=== PATIENT | female | born 1980 | race Caucasian/White ===

== ENCOUNTER 2018-07-19 13:40 | Day surgery (SDC) | payer OTHER ==
--- NOTE | 2018-07-19 14:19 | PCM.PREANE ---
Preanesthetic Assessment - Procedure Proposed Procedure: Laparscopic Appendectomy - Anesthesia/Transfusion/Family Hx Anesthesia History: Prior Anesthesia Without Reaction Family History of Anesthesia Reaction: No Transfusion History: Prior Transfusion Without Reaction Intubation History: Unknown - Review of Systems General: Chills Pulmonary: Cough, Sputum, Other (cold symptoms ) Cardiovascular: No Symptoms Gastrointestinal: No Symptoms Neurological: Numbness (right thigh numbness ) Other: Reports: None - Physical Assessment NPO Status Date: 07/18/18 NPO Status Time: 21:00 O2 Sat by Pulse Oximetry: 100 Respiratory Rate: 20 Vital Signs: Last Vital Signs Temp 37.1 C 07/19/18 13:57 Pulse 90 07/19/18 13:57 Resp 20 07/19/18 13:57 BP 137/91 H 07/19/18 13:57 Pulse Ox 100 07/19/18 13:57 Height: 1.78 m Weight: 79.379 kg ASA Class: 2E Mental Status: Alert & Oriented x3 Airway Class: Mallampati = 2 Dentition: Reports: Normal Dentition Thyro-Mental Finger Breadths: 3 Mouth Opening Finger Breadths: 5 ROM/Head Extension: Full Lungs: Clear to Auscultation, Normal Respiratory Effort Cardiovascular: Regular Rate, Regular Rhythm - Allergies Allergies/Adverse Reactions: Allergies Allergy/AdvReac Type Severity Reaction Status Date / Time erythromycin base Allergy Severe Other Verified 08/14/14 16:49 - Blood Blood Available: No - Anesthesia Plan Pre-Op Medication Ordered: None - Acknowledgements Anesthesia Type Planned: General Anesthesia Pt an Appropriate Candidate for the Planned Anesthesia: Yes Alternatives and Risks of Anesthesia Discussed w Pt/Guardian: Yes Pt/Guardian Understands and Agrees with Anesthesia Plan: Yes PreAnesthesia Questionnaire - HOME MEDS Home Medications: Home Meds . [No Known Home Meds] 07/19/18 [History]
[2018-07-19] MEDS ORDERED: Ketorolac 30 MG/ML SDV IVPUSH ONE (14:57)
[2018-07-19] MEDS ORDERED: Metoclopramide 10 MG/2 ML SDV IVPUSH ONE (15:27)
[2018-07-19] MEDS ORDERED: Lidocaine 1% 4 ML ONE (15:46)
[2018-07-19] MEDS ORDERED: Succinylcholine/Normal Saline 100 MG/5 ML Syringe ONE (15:46)
[2018-07-19] MEDS ORDERED: Lactated Ringers 1,000 ML ONE (15:46)
[2018-07-19] MEDS ORDERED: Dexamethasone 4 MG/ML SDV ONE (15:46)
[2018-07-19] MEDS ORDERED: Ondansetron 4 MG/2 ML SDV ONE (15:46)
[2018-07-19] MEDS ORDERED: Midazolam 1 MG/ML 2 ML SDV ONE (15:47)
[2018-07-19] MEDS ORDERED: Propofol 200 MG/20 ML SDV ONE (15:47)
[2018-07-19] MEDS ORDERED: fentaNYL 250 MCG/5 ML SDV ONE (15:47)
[2018-07-19] MEDS ORDERED: Ketorolac 30 MG/ML SDV ONE (15:51)
[2018-07-19] MEDS ORDERED: Rocuronium 50 MG/5 ML Vial ONE (15:51)
[2018-07-19] MEDS ORDERED: cefTRIAXone 1 GM in Sodium Chloride 0.9% 100 ML IV SCH (16:00)
--- NOTE | 2018-07-19 16:12 | PCM.HP ---
H&P History of Present Illness - General Date of Service: 07/19/18 Admit Problem/Dx: Admission Diagnosis/Problem Admission Diagnosis/Problem Appendicitis Source of Information: Patient, Provider - History of Present Illness Initial Comments - Free Text/Narative: Patient is a 38-year-old female presents with a one-day history of right lower quadrant abdominal pain. She also reports anorexia and nausea with vomiting. She denies any stool changes. She was feeling well one day ago. She presented to the walk-in clinic and was evaluated. She was found to have leukocytosis and CT scan of her abdomen and pelvis was performed. This indicated appendicitis with a dilated appendix and small fecaliths. Right Lower Abdomen Pain Score (Numeric/FACES): 8 - Related Data Allergies/Adverse Reactions: Allergies Allergy/AdvReac Type Severity Reaction Status Date / Time erythromycin base Allergy Severe Other Verified 08/14/14 16:49 Home Medications: Home Meds . [No Known Home Meds] 07/19/18 [History] Past Medical History - Past Surgical History Musculoskeletal Surgical History: Reports: Arthroscopic Knee (bilateral), Other (See Below) (hip surgery) Social & Family History - Family History HEENT: Reports: Macular Degeneration Cardiac: Reports: Hypertension Endocrine/Metabolic: Reports: Diabetes, type II H&P Review of Systems - Review of Systems: Review Of Systems: See Below HEENT: Reports: Sinus Congestion Pulmonary: Reports: No Symptoms Cardiovascular: Reports: No Symptoms Gastrointestinal: Reports: Abdominal Pain, Anorexia Genitourinary: Reports: No Symptoms Musculoskeletal: Reports: Leg Pain Skin: Reports: No Symptoms Psychiatric: Reports: No Symptoms Neurological: Reports: No Symptoms Hematologic/Lymphatic: Reports: No Symptoms Exam - Exam Exam: See Below - Vital Signs Vital Signs: Last Vital Signs Temp 37.1 C 07/19/18 13:57 Pulse 90 07/19/18 13:57 Resp 20 07/19/18 14:22 BP 137/91 H 07/19/18 13:57 Pulse Ox 100 07/19/18 14:22 Weight: 79.379 kg - Exam Quality Assessment: No: Supplemental Oxygen General: Alert, Oriented HEENT: Conjunctiva Clear, EOMI Neck: Supple Lungs: Normal Respiratory Effort Cardiovascular: Regular Rate GI/Abdominal Exam: Soft, Rebound (in RLQ), Tender (in RLQ ) Peripheral Pulses: 2+: Dorsalis Pedis (L), Dorsalis Pedis (R) Skin: Warm, Dry Neurological: Cranial Nerves Intact Neuro Extensive - Mental Status: Alert, Oriented x3, Normal Mood/Affect - Patient Data Lab Results Last 24 hrs: Laboratory Results - last 24 hr 07/19/18 Range/Units 15:30 Urine HCG, Qual Negative (NEGATIVE) *Q Meaningful Use (ADM) - VTE Risk Assess *Q Each Risk Factor Represents 1 Point: Minor Surgery Planned Total Score 1 Point Risk Factors: 1 - Problem List (1) Acute appendicitis SNOMED Code(s): 99759131 ICD Code: K35.80 - UNSPECIFIED ACUTE APPENDICITIS Status: Acute Current Visit: Yes Qualifiers: Acute appendicitis type: with localized peritonitis Appendicitis gangrene presence: unspecified whether gangrene present Appendicitis perforation presence: unspecified whether perforation present Appendicitis abscess presence: without abscess Qualified Code(s): K35.30 - Acute appendicitis with localized peritonitis, without perforation or gangrene Problem List Initiated/Reviewed/Updated: Yes Orders Last 24hrs: Active Orders 24 hr Category Date Time Status Patient Status [ADT] Routine ADT 07/19/18 15:14 Active cefTRIAXone [Rocephin] 1 gm Med 07/19/18 16:00 Active Sodium Chloride 0.9% [Normal Saline] 100 ml IV ONETIME metroNIDAZOLE/Normal Saline [Flagyl 500 MG in NS 100 ML Med 07/19/18 16:30 Active ] 500 mg Premix Bag 1 bag IV ONETIME Schedule Procedure [COMM] Stat Oth 07/19/18 15:14 Ordered Medication Orders Ceftriaxone Sodium 1 gm/ (Sodium Chloride) 100 mls @ 200 mls/hr IV ONETIME MARSHAL Metronidazole 500 mg/ Premix 100 mls @ 100 mls/hr IV ONETIME ONE Stop: 07/19/18 17:29 Assessment/Plan Comment:: 38-year-old female with acute appendicitis - Plan for laparoscopic appendectomy, possible open - Nothing by mouth with IV fluids - 1 G and Metronidazole 500 Mg IV - Will evaluate need for admission based on intraoperative findings Destiny Kelly MD General Surgery
[2018-07-19] MEDS ORDERED: metroNIDAZOLE/Normal Saline 500 MG in Premix Bag 1 BAG IV ONE (16:30)
[2018-07-19] MEDS: Lidocaine 1% with EPINEPHrine 1:100,000 20 ML MDV ONE ×2 (16:38→17:00)
[2018-07-19] MEDS: Bupivacaine 0.5%/EPINEPHrine 1:200,000 50 ML MDV ONE ×2 (16:38→17:00)
[2018-07-19] MEDS ORDERED: Meperidine 50 MG/ML Vial IVPUSH PRN (16:50)
[2018-07-19] MEDS ORDERED: Ondansetron 4 MG/2 ML SDV IVPUSH PRN (16:50)
[2018-07-19] MEDS ORDERED: diphenhydrAMINE 50 MG/ML SDV IVPUSH PRN (16:50)
[2018-07-19] MEDS ORDERED: HYDROmorphone 0.5 MG/0.5 ML Syringe IVPUSH PRN (16:50)
[2018-07-19] MEDS ORDERED: fentaNYL 100 MCG/2 ML SDV IVPUSH PRN (16:50)
[2018-07-19] MEDS ORDERED: Neostigmine Methylsulfate 1 MG/ML 5 ML Syringe ONE (17:07)
--- NOTE | 2018-07-19 17:21 | PCM.OPNOTE ---
- General Post-Op/Procedure Note Date of Surgery/Procedure: 07/19/18 Operative Procedure(s): Laparoscopic appendectomy Findings: Acute appendicitis, not ruptured Pre Op Diagnosis: Acute appendicitis Post-Op Diagnosis: Same Anesthesia Technique: General ET Tube Primary Surgeon: Destiny Kelly Anesthesia Provider: Rosa Isela Moran Pathology: appendix Fluid Replacement, Intraop: 1,000 Output, Urine Amount: 0 EBL in mLs: 15 Complications: none apparent Condition: Stable
--- NOTE | 2018-07-19 17:23 | PCM.PRNOTE ---
- Free Text/Narrative Note: Operative Report Date of surgery: July 19, 2018 Preoperative diagnosis: acute appendicitis. Postoperative diagnosis: same Procedure performed: laparoscopic appendectomy Surgeon: Dr. Destiny Kelly Anesthesia: General Entry Level Paralegal: Rosa Isela Moran CRNA Estimated blood loss 15 mL IV fluids: 1000 mL Urine output: 0 Drains and lines: None Findings: Acute appendicitis, not ruptured Pathology: Appendix Indications for procedure: The patient is a 38-year-old female who presented to the outpatient walk-in clinic complaining of one-day history of right lower quadrant pain. She underwent diagnostic evaluation was found to have acute appendicitis. She was brought to the hospital and evaluated by the surgical team. She was consented for laparoscopic appendectomy. Her written consent was obtained Description of procedure: The patient was taken back to the operating room and placed in supine position on the operating table. SCD boots were in place and functional prior to the start of the procedure. Preoperative antibiotics were administered. The patient had successful induction of general anesthesia and was intubated without difficulty. Pt was then prepped and draped in standard surgical fashion and a timeout was performed. We began by making a 15 mm incision in the infraumbilical skin and deepened down to level of the fascia which was then grasped and incised sharply. We entered the peritoneum and then placed stay sutures of 0 Vicryl on the fascial edges. A 12 mm Arreola port was then placed into the umbilicus and the balloon was inflated. The abdomen was insufflated to 15 mmHg a 5 mm camera was inserted. There was no evidence of any injury created from entry into the abdomen. A TAP block was performed using mixed 1% lidocaine with epinephrine and 0.5% bupivacaine with epinephrine . We then proceeded to place a 5 mm port under direct visualization in the suprapubic midline and an additional 5mm port in the left lower quadrant. The patient was then positioned in Trendelenburg with right side elevated and we proceeded to mobilize the appendix. The appendix appeared distended and inflamed. There was no significant fluid in the abdomen. The appendix was then grasped and with blunt dissection was brought into the surgical field. The mesoappendix dissected from the appendix. The appendix was then taken with a tissue staple load. The mesoappendix was then taken with a vascular staple load. The specimen was in place in the Endo Catch bag. We then inspected and suctioned up any blood in the area. There was no active bleeding at the end of this case. The abdomen was then desufflated and the umbilical fascia closed with 0 Vicryl sutures and the stay sutures were tied, effectively closing the umbilical port site. The skin was then reapproximated at all port sites using a 4-0 Monocryl subcutaneous stitch and covered with Dermabond surgical glue. The patient tolerated the procedure. She was extubated and transported to the PACU in stable condition. All sponge and needle counts were correct. Destiny Kelly MD General Surgery
[2018-07-19] MEDS ORDERED: Acetaminophen/HYDROcodone 325-5 MG Tab PO PRN (17:34)
--- NOTE | 2018-07-19 17:34 | PCM.POSTAN ---
POST ANESTHESIA ASSESSMENT - MENTAL STATUS Mental Status: Alert, Oriented - VITAL SIGNS Pulse Rate: 97 SaO2: 100 Resp Rate: 17 Blood Pressure: 135/72 Temperature: 36.7 C - RESPIRATORY Respiratory Status: Respiratory Rate WNL, Airway Patent, O2 Saturation Stable, Supplemental Oxygen - CARDIOVASCULAR CV Status: Pulse Rate WNL, Blood Pressure Stable - GASTROINTESTINAL GI Status: No Symptoms - PAIN Pain Score: 0 - POST OP HYDRATION Hydration Status: Adequate & Stable
[2018-07-19] MEDS ORDERED: Ibuprofen 600 MG Tab PO PRN (21:00)
--- NOTE | 2018-07-19 21:11 | PCM48HPAN ---
Post Anesthesia Note - EVALUATION WITHIN 48HRS OF ANESTHETIC Vital Signs in Normal Range: Yes Patient Participated in Evaluation: Yes Respiratory Function Stable: Yes Airway Patent: Yes Cardiovascular Function Stable: Yes Hydration Status Stable: Yes Pain Control Satisfactory: Yes Nausea and Vomiting Control Satisfactory: Yes Mental Status Recovered: Yes
[2018-07-19 21:54] VITALS: BP 130/77
== END 2018-07-19 21:15 | disposition home or self-care (01) ==
LOC: JD.ED 13:40 → JD.SDS 13:40
PROVIDERS: ATTEND Surgery
DX: K35.30 Acute appendicitis with localized peritonitis, without perforation or gangrene (principal); Z88.1 Allergy status to other antibiotic agents
CPT/HCPCS: 44970; 81025; 96374; 96375; 99284; A9270; J0696; J1100; J1885; J2250; J2405; J2704; J2710; J2765; J3010; J3490; J7030; J7120; 00840; J0330; J2001

== ENCOUNTER 2019-07-01 06:31 | Inpatient (IN) | payer OTHER ==
[2019-07-01] MEDS ORDERED: Acetaminophen 325 MG Tab PO PRN (11:46)
[2019-07-01] MEDS ORDERED: Nalbuphine 10 MG/1 ML Vial IVPUSH PRN (12:11)
[2019-07-01] MEDS ORDERED: Sodium Chloride 0.9% 10 ML Syringe FLUSH PRN (12:11)
[2019-07-01] MEDS ORDERED: Oxytocin/Lactated Ringers 10 UNIT/1,000 ML BAG IV SCH ×4 (12:15→21:00)
[2019-07-01] MEDS ORDERED: Misoprostol 200 MCG Tab RECTAL ONE (12:15)
--- NOTE | 2019-07-01 12:27 | PCM.LDHP ---
L&D History of Present Illness - General Date of Service: 07/01/19 Admit Problem/Dx: Patient Status Order with Admit Dx/Problem 07/01/19 12:14 Patient Status [ADT] Routine Admission Diagnosis/Problem Admission Diagnosis/Problem Gestational hypertension Source of Information: Patient History Limitations: Reports: No Limitations - History of Present Illness Introduction:: Yaneli Bazan is a 39-year-old -0-0-2 at 38 weeks 0 days ([facility] 07/15/2019 ) by LMP consistent with 8-week ultrasound. She presented this morning for evaluation of not feeling well for the last several days and had gotten worse overnight. She reports that she had not been feeling her normal self over the last 2 to 3 days with right shoulder pain and an uneasiness in her stomach. She reports that overnight this became worse and she had difficulty sleeping. She reports that she has had some blurriness in her vision during this time and did have some episodes with flashes of light but it always occurred with sudden change in position and never persisted. She denies any headache or epigastric pain. She denies any persistent scotomata. She reports that she does have irregular contractions that have been persistent throughout the last few weeks that have been unchanged. She denies any leaking of fluid or vaginal bleeding. Timing/Duration: Reports: gradual onset, getting worse Severity: Moderate Pain Score: 4 Improves with: Reports: None Worsens with: Reports: None Associated Symptoms: Denies: vaginal bleeding, vaginal discharge, vaginal fluid Present Illness Comments:: Yaneli Bazan is a 39-year-old -0-0-2 female at 38 weeks 0 days ([facility] 07/15/2019) by LMP consistent with 8-week ultrasound. She has had routine care with Dr. Caldwell starting at 8 weeks gestational age. This has been overall uncomplicated. Her has been complicated by: * History of preeclampsia in her last * History of hemorrhage with 2 unit blood transfusion after delivery of her last child in 2014 * Complications with right hip after last delivery with necessity of right hip arthroscopy and hip surgery with labrum repair * Advanced maternal age * History of genital herpes without any prodromal symptoms at this time * History of abnormal Pap smear labs Blood type: O+ Antibody screen: Negative First trimester hematocrit/hemoglobin: 36.8%/12.3 on 01/06/2019 Platelets: 237 on 01/06/2019 Rubella status: Immune Hepatitis B surface antigen: Negative RPR: Negative HIV: Negative One hour glucose tolerance test: 100 Second trimester hemoglobin: 11.2 on 03/31/2019 Platelets: 213 on 03/31/2019 GBS status: Negative - Related Data Allergies/Adverse Reactions: Allergies Allergy/AdvReac Type Severity Reaction Status Date / Time erythromycin base AdvReac Intermediate Change Verified 07/20/18 07:11 Mental Status Home Medications: Home Meds No122/Iron/Folic Acid [ Multi Tablet] 1 each PO DAILY 07/01/19 [History] Past Medical History HEENT History: Reports: Other (See Below) Other HEENT History: contacts [employer] RN History: Reports: , Other (See Below) : 3 Para: 2 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: hemorrhage with vaginal delivery of 2nd , preeclampsia with 2nd Musculoskeletal History: Reports: Other (See Below) Other Musculoskeletal History: right hip arthroplasty after last delivery for labrum tear - Past Surgical History HEENT Surgical History: Reports: Tonsillectomy, Other (See Below) ([place] teeth extraction) GI Surgical History: Reports: Appendectomy Musculoskeletal Surgical History: Reports: Arthroscopic Knee (Bilateral), Other (See Below) (Right hip arthroscopy, acetabular and femoral osteoplasty and labral repair) Social & Family History - Family History Family Medical History: Noncontributory HEENT: Reports: Macular Degeneration Cardiac: Reports: Hypertension Endocrine/Metabolic: Reports: Diabetes, type II - Tobacco Use Smoking Status *Q: Former Smoker Tobacco Use Within Last Twelve Months: No - Tobacco Core Measures Tobacco Use/Smoking Within Last 30 Days: No Smokeless Tobacco Use in Last 30 Days: No - Caffeine Use Caffeine Use: Reports: Coffee - Alcohol Use Alcohol Use History: No - Recreational Drug Use Recreational Drug Use: No Drug Use in Last 12 Months: No - Living Situation & Occupation Living situation: Reports: , with Significant Other, with Family H&P Review of Systems - Review of Systems: Review Of Systems: See Below General: Denies: Fever, Chills, Malaise, Weakness, Fatigue HEENT: Reports: Contact Lenses, Sinus Congestion, Visual Changes (blurry vision over last several days). Denies: Headaches, Rhinitis, Post Nasal Drip, Sore Throat Pulmonary: Denies: Shortness of Breath, Wheezing, Pleuritic Chest Pain, Cough Cardiovascular: Denies: Chest Pain, Palpitations, Dyspnea on Exertion, Orthopnea Gastrointestinal: Denies: Abdominal Pain, Constipation, Diarrhea, Nausea, Vomiting Genitourinary: Denies: Dysuria, Frequency, Burning, Pain, Urgency Musculoskeletal: Reports: Neck Pain, Shoulder Pain (right) Skin: Denies: Rash, Lesions Psychiatric: Denies: Depression, Anxiety Neurological: Denies: Headache Hematologic/Lymphatic: Denies: Anemia L&D Exam - Exam Exam: See Below - Vital Signs Vital Signs: Last Vital Signs Temp 36.9 C 07/01/19 06:35 Pulse 72 07/01/19 07:31 Resp 16 07/01/19 06:35 BP 152/88 H 07/01/19 07:31 Pulse Ox 100 07/01/19 06:35 - OB Specific Contraction Duration (sec): 45-60 Contraction Frequency (min): 7-15 Contraction Intensity: Mild to Moderate Movement: Active Heart Tones: Present Heart Tones per Min: 130 (+15 x 15 accelerations, no decelerations) Heart Rate (FHR) Variability: Moderate (6-25 bmp) Presentation: Vertex Estimated Weight: 7 to 7.5 pounds by Eh's - Estrada Score Estrada Score Cervix Position: Anterior Estrada Score Consistency: Soft Estrada Score Effacement: >80% (80%) Estrada Score Dilation: 3-4 cm (3 cm) Estrada Score Infant's Station: -3 (-4) Estrada Score Total: 9 - Exam General: Alert, Oriented HEENT: Conjunctiva Clear, EOMI Neck: Supple, Trachea Midline Lungs: Clear to Auscultation, Normal Respiratory Effort Cardiovascular: Regular Rate, Regular Rhythm GI/Abdominal Exam: Soft, Non-Tender, No Distention, Other (Gravid). No: Guarding, Rigid, Rebound Genitourinary: Normal external exam Extremities: Normal Inspection, Non-Tender, Pedal Edema (Trace in bilateral lower extremities to mid shins) Skin: Warm, Dry, Intact Psychiatric: Alert, Normal Affect, Normal Mood - Patient Data Lab Results Last 24 hrs: Laboratory Results - last 24 hr 07/01/19 07/01/19 07/01/19 Range/Units 06:50 07:18 07:25 WBC 9.69 (3.98-10.04) K/mm3 RBC 4.12 (3.98-5.22) M/mm3 Hgb 12.3 D (11.2-15.7) gm/dl Hct 36.1 (34.1-44.9) % MCV 87.6 D (79.4-94.8) fl MCH 29.9 (25.6-32.2) pg MCHC 34.1 (32.2-35.5) g/dl RDW Std Deviation 40.6 (36.4-46.3) fL Plt Count 177 L (182-369) K/mm3 MPV 12.0 (9.4-12.3) fl Neut % (Auto) 76.2 H (34.0-71.1) % Lymph % (Auto) 18.3 L (19.3-51.7) % [place] % (Auto) 4.5 L (4.7-12.5) % Eos % (Auto) 0.7 (0.7-5.8) Baso % (Auto) 0.3 (0.1-1.2) % Neut # (Auto) 7.38 H (1.56-6.13) K/mm3 Lymph # (Auto) 1.77 (1.18-3.74) K/mm3 [place] # (Auto) 0.44 H (0.24-0.36) K/mm3 Eos # (Auto) 0.07 (0.04-0.36) K/mm3 Baso # (Auto) 0.03 (0.01-0.08) K/mm3 Manual Slide Review Normal smear Sodium (136-145) mEq/L Potassium (3.5-5.1) mEq/L Chloride (98-107) mEq/L Carbon Dioxide (21-32) mEq/L Anion Gap (5-15) BUN (7-18) mg/dL Creatinine (0.55-1.02) mg/dL Est Cr Clr Drug Dosing Estimated GFR (MDRD) (>60) mL/min BUN/Creatinine Ratio (14-18) Glucose (74-106) mg/dL Calcium (8.5-10.1) mg/dL Total Bilirubin (0.2-1.0) mg/dL AST (15-37) U/L ALT (14-59) U/L Alkaline Phosphatase (46-116) U/L Total Protein (6.4-8.2) g/dl Albumin (3.4-5.0) g/dl Globulin gm/dL Albumin/Globulin Ratio (1-2) Urine Color Yellow (Yellow) Urine Appearance Slt cloudy H (Clear) Urine pH 7.0 (5.0-8.0) Ur Specific [place] 1.025 (1.005-1.030) Urine Protein Trace H (Negative) Urine Glucose (UA) Negative (Negative) Urine Ketones Negative (Negative) Urine Occult Blood Negative (Negative) Urine Nitrite Negative (Negative) Urine Bilirubin Negative (Negative) Urine Urobilinogen 0.2 (0.2-1.0) Ur Leukocyte Esterase Trace H (Negative) Urine RBC Not seen (0-5) /hpf Urine WBC 0-5 (0-5) /hpf Ur Squamous Epith Cells 0-5 (0-5) /hpf Urine Bacteria Few (FEW) /hpf Urine Mucus Few (FEW) /hpf Ur Random Creatinine 176.9 H (30.0-125.0) mg/dL U Random Total Protein 34.7 H (0.0-11.8) mg/dL Protein/Creatinin Ratio 196.2 H (0-149) mg/g 07/01/19 Range/Units 07:25 WBC (3.98-10.04) K/mm3 RBC (3.98-5.22) M/mm3 Hgb (11.2-15.7) gm/dl Hct (34.1-44.9) % MCV (79.4-94.8) fl MCH (25.6-32.2) pg MCHC (32.2-35.5) g/dl RDW Std Deviation (36.4-46.3) fL Plt Count (182-369) K/mm3 MPV (9.4-12.3) fl Neut % (Auto) (34.0-71.1) % Lymph % (Auto) (19.3-51.7) % [place] % (Auto) (4.7-12.5) % Eos % (Auto) (0.7-5.8) Baso % (Auto) (0.1-1.2) % Neut # (Auto) (1.56-6.13) K/mm3 Lymph # (Auto) (1.18-3.74) K/mm3 [place] # (Auto) (0.24-0.36) K/mm3 Eos # (Auto) (0.04-0.36) K/mm3 Baso # (Auto) (0.01-0.08) K/mm3 Manual Slide Review Sodium 132 L (136-145) mEq/L Potassium 3.4 L (3.5-5.1) mEq/L Chloride 99 (98-107) mEq/L Carbon Dioxide 22 (21-32) mEq/L Anion Gap 14.4 (5-15) BUN 11 (7-18) mg/dL Creatinine 0.8 (0.55-1.02) mg/dL Est Cr Clr Drug Dosing TNP Estimated GFR (MDRD) > 60 (>60) mL/min BUN/Creatinine Ratio 13.8 L (14-18) Glucose 79 (74-106) mg/dL Calcium 8.7 (8.5-10.1) mg/dL Total Bilirubin 0.5 (0.2-1.0) mg/dL AST 69 H (15-37) U/L ALT 99 H (14-59) U/L Alkaline Phosphatase 206 H (46-116) U/L Total Protein 6.4 (6.4-8.2) g/dl Albumin 2.6 L (3.4-5.0) g/dl Globulin 3.8 gm/dL Albumin/Globulin Ratio 0.7 L (1-2) Urine Color (Yellow) Urine Appearance (Clear) Urine pH (5.0-8.0) Ur Specific [place] (1.005-1.030) Urine Protein (Negative) Urine Glucose (UA) (Negative) Urine Ketones (Negative) Urine Occult Blood (Negative) Urine Nitrite (Negative) Urine Bilirubin (Negative) Urine Urobilinogen (0.2-1.0) Ur Leukocyte Esterase (Negative) Urine RBC (0-5) /hpf Urine WBC (0-5) /hpf Ur Squamous Epith Cells (0-5) /hpf Urine Bacteria (FEW) /hpf Urine Mucus (FEW) /hpf Ur Random Creatinine (30.0-125.0) mg/dL U Random Total Protein (0.0-11.8) mg/dL Protein/Creatinin Ratio (0-149) mg/g Result Diagrams: 07/01/19 07:25 07/01/19 07:25 - Problem List (1) 38 weeks gestation of SNOMED Code(s): 42548344 ICD Code: Z3A.38 - 38 WEEKS GESTATION OF Status: Acute Current Visit: Yes (2) Gestational hypertension SNOMED Code(s): 847044250 ICD Code: O13.9 - GESTATIONAL HTN W/O SIGNIFICANT PROTEINURIA, UNSP TRIMESTER Status: Acute Current Visit: Yes (3) History of pre-eclampsia in prior , currently SNOMED Code(s): 562350181334282, 679771678986712 ICD Code: O09.299 - SUPRVSN OF PREG W POOR REPRODCTV OR OBSTET HISTORY, UNSP TRI Status: Acute Current Visit: Yes (4) History of hemorrhage, currently SNOMED Code(s): 70161975 ICD Code: O09.299 - SUPRVSN OF PREG W POOR REPRODCTV OR OBSTET HISTORY, UNSP TRI Status: Acute Current Visit: Yes (5) Advanced maternal age in multigravida SNOMED Code(s): 743150955 ICD Code: O09.529 - SUPERVISION OF ELDERLY MULTIGRAVIDA, UNSPECIFIED TRIMESTER Status: Acute Current Visit: Yes Problem List Initiated/Reviewed/Updated: Yes Orders Last 24hrs: Active Orders 24 hr Category Date Time Status Patient Status [ADT] Routine ADT 07/01/19 12:14 Active Activity as Tolerated [RC] PFP Care 07/01/19 12:13 Ordered Communication Order [RC] ASDIRECTED Care 07/01/19 12:13 Ordered Heart Tones [RC] ASDIRECTED Care 07/01/19 12:13 Ordered Notify Provider Vital Signs [RC] PRN Care 07/01/19 12:14 Ordered Notify Provider [RC] PFP Care 07/01/19 12:13 Ordered Notify Provider [RC] PRN Care 07/01/19 12:13 Ordered Peripheral IV Care [RC] . DIRECTED Care 07/01/19 12:13 Ordered Pump Management, Intrathecal [RC] ASDIRECTED Care 07/01/19 12:14 Ordered Urinary Catheter Assessment [RC] ASDIRECTED Care 07/01/19 12:11 Ordered Vaginal Exam [RC] PRN Care 07/01/19 06:36 Active Vital Signs [RC] PER UNIT ROUTINE Care 07/01/19 06:35 Active Vital Signs [RC] PER UNIT ROUTINE Care 07/01/19 12:13 Ordered Regular Diet [DIET] Diet 07/01/19 Breakfast Active RAPID PLASMA REAGIN,RPR [CHEM] Routine Lab 07/01/19 12:13 Ordered TYPE AND SCREEN [BBK] Routine Lab 07/01/19 12:11 Ordered Acetaminophen [Tylenol] Med 07/01/19 11:46 Active 650 mg PO Q4H PRN Lactated Ringers [Ringers, Lactated] 1,000 ml Med 07/01/19 12:15 Ordered IV ASDIRECTED Nalbuphine [Nubain] Med 07/01/19 12:11 Ordered 10 mg IVPUSH Q2H PRN Oxytocin/Lactated Ringers [Pitocin in LR 10 Units/1,000 Med 07/01/19 12:15 Ordered ML] 10 unit in 1,000 ml IV .CONTINUOUS Oxytocin/Lactated Ringers [Pitocin in LR 10 Units/1,000 Med 07/01/19 12:15 Ordered ML] 10 unit in 1,000 ml IV TITRATE Sodium Chloride 0.9% [Saline Flush] Med 07/01/19 12:11 Ordered 10 ml FLUSH ASDIRECTED PRN miSOPROStoL [Cytotec] Med 07/01/19 12:15 Once 1,000 mcg RECTAL ONETIME ONE Electronic Heart Tones Ext w TOCO [WOMSER] Oth 07/01/19 12:13 Ordered Routine Electronic Heart Tones Internal [WOMSER] Per Unit Oth 07/01/19 12:13 Ordered Routine Peripheral IV Insertion Adult [OM.PC] Routine Oth 07/01/19 12:13 Ordered Resuscitation Status Routine Resus Stat 07/01/19 06:35 Ordered Medication Orders Acetaminophen (Tylenol) 650 mg PO Q4H PRN PRN Reason: neck pain Last Admin: 07/01/19 12:02 Dose: 650 mg Assessment/Plan Comment:: Yaneli Bazan is a 39-year-old -0-0-2 at 38 weeks 0 days by LMP consistent with 8-week ultrasound who presents with gestational hypertension. Patient has had multiple and persistent mild range blood pressures with mildly elevated liver enzymes and no evidence of proteinuria. Patient likely has gestational hypertension and recommend for induction of labor at this time. Recommendations were discussed with patient and she desires to proceed with induction of labor. During pelvic exam the cervix was noted to be dilated to 3/80/-4/soft/anterior. Was felt that a Garcia bulb would help with initiating the induction process and a 16 [place] Garcia bulb was introduced manually through the cervix and filled with 50 mL of sterile saline. Mother and infant tolerated procedure without difficulty. Refer to observation for medically indicated induction of labor with gestational hypertension Start Pitocin for induction of labor Continuous monitoring Place IV and have Lactated Ringer's at 125 ml/hr May have small amounts of regular diet Activity as tolerated May have epidural as desired Plans to breast-feed after delivery We will plan for artificial rupture of membranes once patient has had cervical dilation. Anticipate vaginal delivery unless otherwise indicated Niall Pendleton MD 12:38 PM 07/01/2019
[2019-07-01] MEDS: Lactated Ringers 1,000 ML IV SCH ×2 (12:44→17:41)
[2019-07-01] MEDS ORDERED: Bupivacaine 0.25% 10 ML SDV ONE (14:00)
[2019-07-01] MEDS ORDERED: diphenhydrAMINE 50 MG/ML SDV IVPUSH PRN (14:54)
[2019-07-01] MEDS ORDERED: fentaNYL/Bupivacaine/NS 2 MCG-0.125% 250 ML EPIDUR PRN (14:54)
[2019-07-01] MEDS ORDERED: ePHEDrine 50 MG/ML SDV IVPUSH PRN (14:54)
[2019-07-01] MEDS ORDERED: fentaNYL 100 MCG/2 ML SDV EPIDUR PRN (14:54)
--- NOTE | 2019-07-01 15:35 | PCM.PREANE ---
Preanesthetic Assessment - Anesthesia/Transfusion/Family Hx Anesthesia History: Prior Anesthesia Without Reaction Family History of Anesthesia Reaction: No Transfusion History: Prior Transfusion Without Reaction Intubation History: Unknown - Review of Systems General: No Symptoms Pulmonary: No Symptoms Cardiovascular: Other (Hypertension) Gastrointestinal: Other (GERD) Neurological: Pre-Existing Deficit (headache with neck pain mostly right side of her neck) Other: Reports: Neck Pain - Physical Assessment Vital Signs: Last Vital Signs Temp 36.9 C 07/01/19 06:35 Pulse 72 07/01/19 07:31 Resp 16 07/01/19 06:35 BP 152/88 H 07/01/19 07:31 Pulse Ox 100 07/01/19 06:35 Height: 1.78 m Weight: 85.729 kg ASA Class: 2 Mental Status: Alert & Oriented x3 Airway Class: Mallampati = 2 Dentition: Reports: Normal Dentition Thyro-Mental Finger Breadths: 3 Mouth Opening Finger Breadths: 3 ROM/Head Extension: Full Lungs: Clear to Auscultation, Normal Respiratory Effort Cardiovascular: Regular Rate, Regular Rhythm - Lab Values: Laboratory Last Values WBC 9.69 K/mm3 (3.98-10.04) 07/01/19 07:25 RBC 4.12 M/mm3 (3.98-5.22) 07/01/19 07:25 Hgb 12.3 gm/dl (11.2-15.7) D 07/01/19 07:25 Hct 36.1 % (34.1-44.9) 07/01/19 07:25 MCV 87.6 fl (79.4-94.8) D 07/01/19 07:25 MCH 29.9 pg (25.6-32.2) 07/01/19 07:25 MCHC 34.1 g/dl (32.2-35.5) 07/01/19 07:25 RDW Std Deviation 40.6 fL (36.4-46.3) 07/01/19 07:25 Plt Count 177 K/mm3 (182-369) L 07/01/19 07:25 MPV 12.0 fl (9.4-12.3) 07/01/19 07:25 Neut % (Auto) 76.2 % (34.0-71.1) H 07/01/19 07:25 Lymph % (Auto) 18.3 % (19.3-51.7) L 07/01/19 07:25 [place] % (Auto) 4.5 % (4.7-12.5) L 07/01/19 07:25 Eos % (Auto) 0.7 (0.7-5.8) 07/01/19 07:25 Baso % (Auto) 0.3 % (0.1-1.2) 07/01/19 07:25 Neut # (Auto) 7.38 K/mm3 (1.56-6.13) H 07/01/19 07:25 Lymph # (Auto) 1.77 K/mm3 (1.18-3.74) 07/01/19 07:25 [place] # (Auto) 0.44 K/mm3 (0.24-0.36) H 07/01/19 07:25 Eos # (Auto) 0.07 K/mm3 (0.04-0.36) 07/01/19 07:25 Baso # (Auto) 0.03 K/mm3 (0.01-0.08) 07/01/19 07:25 Manual Slide Review Normal smear 07/01/19 07:25 Sodium 132 mEq/L (136-145) L 07/01/19 07:25 Potassium 3.4 mEq/L (3.5-5.1) L 07/01/19 07:25 Chloride 99 mEq/L (98-107) 07/01/19 07:25 Carbon Dioxide 22 mEq/L (21-32) 07/01/19 07:25 Anion Gap 14.4 (5-15) 07/01/19 07:25 BUN 11 mg/dL (7-18) 07/01/19 07:25 Creatinine 0.8 mg/dL (0.55-1.02) 07/01/19 07:25 Est Cr Clr Drug Dosing TNP 07/01/19 07:25 Estimated GFR (MDRD) > 60 mL/min (>60) 07/01/19 07:25 BUN/Creatinine Ratio 13.8 (14-18) L 07/01/19 07:25 Glucose 79 mg/dL (74-106) 07/01/19 07:25 Calcium 8.7 mg/dL (8.5-10.1) 07/01/19 07:25 Total Bilirubin 0.5 mg/dL (0.2-1.0) 07/01/19 07:25 AST 69 U/L (15-37) H 07/01/19 07:25 ALT 99 U/L (14-59) H 07/01/19 07:25 Alkaline Phosphatase 206 U/L (46-116) H 07/01/19 07:25 Total Protein 6.4 g/dl (6.4-8.2) 07/01/19 07:25 Albumin 2.6 g/dl (3.4-5.0) L 07/01/19 07:25 Globulin 3.8 gm/dL 07/01/19 07:25 Albumin/Globulin Ratio 0.7 (1-2) L 07/01/19 07:25 Urine Color Yellow (Yellow) 07/01/19 06:50 Urine Appearance Slt cloudy (Clear) H 07/01/19 06:50 Urine pH 7.0 (5.0-8.0) 07/01/19 06:50 Ur Specific [place] 1.025 (1.005-1.030) 07/01/19 06:50 Urine Protein Trace (Negative) H 07/01/19 06:50 Urine Glucose (UA) Negative (Negative) 07/01/19 06:50 Urine Ketones Negative (Negative) 07/01/19 06:50 Urine Occult Blood Negative (Negative) 07/01/19 06:50 Urine Nitrite Negative (Negative) 07/01/19 06:50 Urine Bilirubin Negative (Negative) 07/01/19 06:50 Urine Urobilinogen 0.2 (0.2-1.0) 07/01/19 06:50 Ur Leukocyte Esterase Trace (Negative) H 07/01/19 06:50 Urine RBC Not seen /hpf (0-5) 07/01/19 06:50 Urine WBC 0-5 /hpf (0-5) 07/01/19 06:50 Ur Squamous Epith Cells 0-5 /hpf (0-5) 07/01/19 06:50 Urine Bacteria Few /hpf (FEW) 07/01/19 06:50 Urine Mucus Few /hpf (FEW) 07/01/19 06:50 Ur Random Creatinine 176.9 mg/dL (30.0-125.0) H 07/01/19 07:18 U Random Total Protein 34.7 mg/dL (0.0-11.8) H 07/01/19 07:18 Protein/Creatinin Ratio 196.2 mg/g (0-149) H 07/01/19 07:18 Blood Type O POSITIVE 07/01/19 07:25 Gel Antibody Screen Negative 07/01/19 07:25 - Allergies Allergies/Adverse Reactions: Allergies Allergy/AdvReac Type Severity Reaction Status Date / Time erythromycin base AdvReac Intermediate Change Verified 07/20/18 07:11 Mental Status - Acknowledgements Anesthesia Type Planned: Epidural Pt an Appropriate Candidate for the Planned Anesthesia: Yes Alternatives and Risks of Anesthesia Discussed w Pt/Guardian: Yes Pt/Guardian Understands and Agrees with Anesthesia Plan: Yes PreAnesthesia Questionnaire HEENT History: Reports: Other (See Below) Other HEENT History: contacts 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: , Other (See Below) 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: hemorrhage with vaginal delivery of 2nd , preeclampsia with 2nd Musculoskeletal History: Reports: Other (See Below) Other Musculoskeletal History: right hip arthroplasty after last delivery for labrum tear - Past Surgical History HEENT Surgical History: Reports: Tonsillectomy, Other (See Below) ([place] teeth extraction) GI Surgical History: Reports: Appendectomy Musculoskeletal Surgical History: Reports: Arthroscopic Knee (Bilateral), Other (See Below) (Right hip arthroscopy, acetabular and femoral osteoplasty and labral repair) - SUBSTANCE USE Smoking Status *Q: Former Smoker Tobacco Use Within Last Twelve Months: No Recreational Drug Use History: No - HOME MEDS Home Medications: Home Meds No122/Iron/Folic Acid [ Multi Tablet] 1 each PO DAILY 07/01/19 [History] - CURRENT (IN HOUSE) MEDS Current Meds: Current Medications Acetaminophen (Tylenol) 650 mg PO Q4H PRN PRN Reason: neck pain Last Admin: 07/01/19 12:02 Dose: 650 mg Diphenhydramine HCl (Benadryl) 25 mg IVPUSH Q6H PRN PRN Reason: pruritis Ephedrine Sulfate (Ephedrine Sulfate) 5 mg IVPUSH ASDIRECTED PRN PRN Reason: Hypotension Fentanyl (Sublimaze) 100 mcg EPIDUR Q3H PRN PRN Reason: Pain Fentanyl/Bupivacaine HCl (Fentanyl/Bupivacaine/Ns 2 Mcg-0.125% 250 Ml) 250 ml EPIDUR CONTINUOUS PRN PRN Reason: Pain Last Admin: 07/01/19 15:33 Dose: 250 ml Lactated Ringer's (Ringers, Lactated) 1,000 mls @ 100 mls/hr IV ASDIRECTED MARSHAL Last Admin: 07/01/19 12:44 Dose: 100 mls/hr Oxytocin/Lactated Ringer's (Pitocin In Lr 10 Units/1,000 Ml) 10 unit in 1,000 mls @ 12 mls/hr IV TITRATE MARSHAL; Protocol Last Titration: 07/01/19 14:30 Dose: 8 munits/min, 48 mls/hr Oxytocin/Lactated Ringer's (Pitocin In Lr 10 Units/1,000 Ml) 10 unit in 1,000 mls @ 100 mls/hr IV .CONTINUOUS MARSHAL Oxytocin/Lactated Ringer's (Pitocin In Lr 10 Units/1,000 Ml) 10 unit in 1,000 mls @ 12 mls/hr IV TITRATE MARSHAL; Protocol Nalbuphine HCl (Nubain) 10 mg IVPUSH Q2H PRN PRN Reason: Pain Sodium Chloride (Saline Flush) 10 ml FLUSH ASDIRECTED PRN PRN Reason: Keep Vein Open Discontinued Medications Misoprostol (Cytotec) 1,000 mcg RECTAL ONETIME ONE Stop: 07/01/19 12:16
--- NOTE | 2019-07-01 17:05 | PCM.PNLD ---
Labor Progress Note - VS & Meds Vital Signs: Last Vital Signs Temp 36.9 C 07/01/19 06:35 Pulse 72 07/01/19 07:31 Resp 16 07/01/19 06:35 BP 152/88 H 07/01/19 07:31 Pulse Ox 100 07/01/19 06:35 Active Medications: Current Medications Acetaminophen (Tylenol) 650 mg PO Q4H PRN PRN Reason: neck pain Last Admin: 07/01/19 12:02 Dose: 650 mg Diphenhydramine HCl (Benadryl) 25 mg IVPUSH Q6H PRN PRN Reason: pruritis Ephedrine Sulfate (Ephedrine Sulfate) 5 mg IVPUSH ASDIRECTED PRN PRN Reason: Hypotension Fentanyl (Sublimaze) 100 mcg EPIDUR Q3H PRN PRN Reason: Pain Fentanyl/Bupivacaine HCl (Fentanyl/Bupivacaine/Ns 2 Mcg-0.125% 250 Ml) 250 ml EPIDUR CONTINUOUS PRN PRN Reason: Pain Last Admin: 07/01/19 15:33 Dose: 250 ml Lactated Ringer's (Ringers, Lactated) 1,000 mls @ 100 mls/hr IV ASDIRECTED MARSHAL Last Admin: 07/01/19 12:44 Dose: 100 mls/hr Oxytocin/Lactated Ringer's (Pitocin In Lr 10 Units/1,000 Ml) 10 unit in 1,000 mls @ 12 mls/hr IV TITRATE MARSHAL; Protocol Last Titration: 07/01/19 16:31 Dose: 12 munits/min, 72 mls/hr Oxytocin/Lactated Ringer's (Pitocin In Lr 10 Units/1,000 Ml) 10 unit in 1,000 mls @ 100 mls/hr IV .CONTINUOUS MARSHAL Oxytocin/Lactated Ringer's (Pitocin In Lr 10 Units/1,000 Ml) 10 unit in 1,000 mls @ 12 mls/hr IV TITRATE MARSHAL; Protocol Nalbuphine HCl (Nubain) 10 mg IVPUSH Q2H PRN PRN Reason: Pain Sodium Chloride (Saline Flush) 10 ml FLUSH ASDIRECTED PRN PRN Reason: Keep Vein Open Discontinued Medications Misoprostol (Cytotec) 1,000 mcg RECTAL ONETIME ONE Stop: 07/01/19 12:16 - Uterine Contractions Contraction Frequency (min): 2-4 Contraction Duration (sec): 60-75 Contraction Intensity: Moderate to Strong Uterine Resting Tone: Soft - Monitoring Monitor Mode: Doppler/Auscultation Heart Rate (FHR) Baseline: 125 Heart Rate (FHR) Per Doppler: 125 Heart Rate (FHR) Variability: Moderate (6-25 bmp) Accelerations: Present, 15x15 Decelerations: None Strip Review: Category I - Vaginal Exam Dilation (cm): 6 Effacement (Percent): 80 Station: -3 Cervical Position: Anterior Sterile Vaginal Exam Performed By: Niall Pendleton Vaginal Exam Comment: Artificial rupture membranes performed with [place]. Large amount of clear fluid returned. Mother and infant tolerated without difficulty. - Labor Progress (Free Text) Labor Progress: Continuous monitoring of infant Continue Pitocin for induction of labor Routine vitals Monitor for any signs or symptoms of severe features of preeclampsia Anticipate vaginal delivery unless otherwise indicated Niall Pendleton MD 5:05 PM 07/01/2019
[2019-07-01] MEDS ORDERED: Misoprostol 200 MCG Tab ONE (19:51)
[2019-07-01] MEDS ORDERED: Carboprost Tromethamine 250 MCG/1 ML Amp ONE (20:31)
[2019-07-01] MEDS ORDERED: Atropine/Diphenoxylate 0.025-2.5 MG Tab PO ONE (20:34)
[2019-07-01] MEDS ORDERED: Carboprost Tromethamine 250 MCG/1 ML Amp IM ONE (20:37)
[2019-07-01] MEDS ORDERED: Benzocaine/Menthol 20%-0.5% Spray 56 GM Canister TOP PRN (20:58)
[2019-07-01] MEDS ORDERED: Hydrocortisone Acetate 25 MG Supp RECTAL PRN (20:58)
[2019-07-01] MEDS ORDERED: Docusate Sodium 100 MG Cap PO PRN (20:58)
--- NOTE | 2019-07-01 21:14 | PCM.DEL ---
L & D Note - General Info Date of Service: 07/01/19 Mother's Due Date: 07/15/19 - Delivery Note Labor: Augmented by ARM, Induced by Oxytocin Delivery Outcome: Livebirth Delivery Method: Spontaneous Vaginal Delivery-Single Presentation: Left Occiput Anterior (ALEKSANDAR) Nuchal Cord: Present (x1), Reduced Prep: Povidone-Iodine (Betadine Anesthesia Type: Epidural Amniotic Fluid Description: Clear Episiotomy Type: None Laceration: None Placenta: Intact, Spontaneous Cord: 3 Vessels Estimated Blood Loss: 500 Resuscitation Needed: Yes [place]: Bulb Syringe, Stimulated, Warmed, [place] Used Provider: Niall Pendleton Score 1 min: 8 Score 5 min: 9 Second Stage Interventions: Reports: Pushing Effectively, Pushing, Stirrups/Leg Supports Delivery Comments (Free Text/Narrative):: Stage I: Yaneli Bazan was admitted for medically indicated induction of labor at 38 weeks gestational age after she was diagnosed with gestational hypertension. She had initially come in for evaluation for not feeling well and was noted to have mild range blood pressures on admission. Her blood work testing was overall normal but did show some mildly elevated liver enzymes that did not meet parameters for preeclampsia. She continued to have mild range blood pressures throughout her monitoring and decision was made for induction of labor due to gestational hypertension. On admission her cervix was dilated to 3 cm. She was GBS negative. She had a 16 [place] bulb introduced manually through the cervix and filled with 50 mL of sterile saline. She was started on Pitocin for induction of labor. She was given an epidural for anesthesia. She had artificial rupture of membranes with an [place] with clear fluid that returned. She progressed to complete and pushing. Stage II: On 07/01/2019 she had a normal vaginal delivery of a live female at 18:14. Apgars of 8 & 9. Weight of 3180 g (7 lbs 0.2 oz). Length of 19.5 inches. There was a single nuchal cord that was reduced prior to delivery. was delivered in ALEKSANDAR position. The cord was doubly clamped and cut by father of the infant. Infant was placed on mother's abdomen. Stage III: She had a spontaneous delivery of an intact placenta in [place] presentation. Three vessel cord. She was given pitocin and fundal massage. She had no lacerations after delivery. She had uterine atony of the lower uterine segment and was given Cytotec 1000 mcg rectally. She continued to have moderate amount of bleeding with ongoing lower uterine segment atony and was given Hemabate 250 mcg IM x1 dose. She was noted to have good uterine tone with good lower uterine segment tone and had minimal bleeding after the dose of Hemabate. She was given Lomotil 1 tablet to reduce chances for diarrhea. Mom and baby were stable to recovery. EBL of 500 mL. Niall Pendleton MD 9:13 PM 07/01/2019 Induction Criteria - Estrada Score Estrada Score Dilation: 3-4 cm Estrada Score Effacement: >80% Estrada Score 's Station: -3 Estrada Score Consistency: Soft Estrada Score Cervix Position: Anterior Estrada Score Total: 9 Estrada Score Presenting Part: Reports: Cephalic - Induction Gestational Age >/= 39 wks: No Medical Indication: Gestational hypertension Estimated Pelvis: Reports: Adequate Reassuring Monitoring Strip: Yes Absence of Tachy Systole: Yes - Augmentation Estimated Pelvis: Reports: Adequate Weight Estimated:: Reports: AGA Reassuring Monitoring Strip: Yes Absence of Tachy Systole: Yes - General Info Date of Service: 07/01/19 - Patient Data Vitals - Most Recent: Last Vital Signs Temp 36.9 C 07/01/19 06:35 Pulse 72 07/01/19 07:31 Resp 16 07/01/19 06:35 BP 152/88 H 07/01/19 07:31 Pulse Ox 100 07/01/19 06:35 Weight - Most Recent: 85.729 kg I&O - Last 24 Hours: Intake & Output 07/01/19 07/01/19 07/01/19 06:59 14:59 22:59 Intake Total 450 Output Total 500 Balance -50 Lab Results Last 24 Hours: Laboratory Results - last 24 hr 07/01/19 07/01/19 07/01/19 Range/Units 06:50 07:18 07:25 WBC 9.69 (3.98-10.04) K/mm3 RBC 4.12 (3.98-5.22) M/mm3 Hgb 12.3 D (11.2-15.7) gm/dl Hct 36.1 (34.1-44.9) % MCV 87.6 D (79.4-94.8) fl MCH 29.9 (25.6-32.2) pg MCHC 34.1 (32.2-35.5) g/dl RDW Std Deviation 40.6 (36.4-46.3) fL Plt Count 177 L (182-369) K/mm3 MPV 12.0 (9.4-12.3) fl Neut % (Auto) 76.2 H (34.0-71.1) % Lymph % (Auto) 18.3 L (19.3-51.7) % [place] % (Auto) 4.5 L (4.7-12.5) % Eos % (Auto) 0.7 (0.7-5.8) Baso % (Auto) 0.3 (0.1-1.2) % Neut # (Auto) 7.38 H (1.56-6.13) K/mm3 Lymph # (Auto) 1.77 (1.18-3.74) K/mm3 [place] # (Auto) 0.44 H (0.24-0.36) K/mm3 Eos # (Auto) 0.07 (0.04-0.36) K/mm3 Baso # (Auto) 0.03 (0.01-0.08) K/mm3 Manual Slide Review Normal smear Sodium (136-145) mEq/L Potassium (3.5-5.1) mEq/L Chloride (98-107) mEq/L Carbon Dioxide (21-32) mEq/L Anion Gap (5-15) BUN (7-18) mg/dL Creatinine (0.55-1.02) mg/dL Est Cr Clr Drug Dosing Estimated GFR (MDRD) (>60) mL/min BUN/Creatinine Ratio (14-18) Glucose (74-106) mg/dL Calcium (8.5-10.1) mg/dL Total Bilirubin (0.2-1.0) mg/dL AST (15-37) U/L ALT (14-59) U/L Alkaline Phosphatase (46-116) U/L Total Protein (6.4-8.2) g/dl Albumin (3.4-5.0) g/dl Globulin gm/dL Albumin/Globulin Ratio (1-2) Urine Color Yellow (Yellow) Urine Appearance Slt cloudy H (Clear) Urine pH 7.0 (5.0-8.0) Ur Specific [place] 1.025 (1.005-1.030) Urine Protein Trace H (Negative) Urine Glucose (UA) Negative (Negative) Urine Ketones Negative (Negative) Urine Occult Blood Negative (Negative) Urine Nitrite Negative (Negative) Urine Bilirubin Negative (Negative) Urine Urobilinogen 0.2 (0.2-1.0) Ur Leukocyte Esterase Trace H (Negative) Urine RBC Not seen (0-5) /hpf Urine WBC 0-5 (0-5) /hpf Ur Squamous Epith Cells 0-5 (0-5) /hpf Urine Bacteria Few (FEW) /hpf Urine Mucus Few (FEW) /hpf Ur Random Creatinine 176.9 H (30.0-125.0) mg/dL U Random Total Protein 34.7 H (0.0-11.8) mg/dL Protein/Creatinin Ratio 196.2 H (0-149) mg/g Blood Type Gel Antibody Screen 07/01/19 07/01/19 Range/Units 07:25 07:25 WBC (3.98-10.04) K/mm3 RBC (3.98-5.22) M/mm3 Hgb (11.2-15.7) gm/dl Hct (34.1-44.9) % MCV (79.4-94.8) fl MCH (25.6-32.2) pg MCHC (32.2-35.5) g/dl RDW Std Deviation (36.4-46.3) fL Plt Count (182-369) K/mm3 MPV (9.4-12.3) fl Neut % (Auto) (34.0-71.1) % Lymph % (Auto) (19.3-51.7) % [place] % (Auto) (4.7-12.5) % Eos % (Auto) (0.7-5.8) Baso % (Auto) (0.1-1.2) % Neut # (Auto) (1.56-6.13) K/mm3 Lymph # (Auto) (1.18-3.74) K/mm3 [place] # (Auto) (0.24-0.36) K/mm3 Eos # (Auto) (0.04-0.36) K/mm3 Baso # (Auto) (0.01-0.08) K/mm3 Manual Slide Review Sodium 132 L (136-145) mEq/L Potassium 3.4 L (3.5-5.1) mEq/L Chloride 99 (98-107) mEq/L Carbon Dioxide 22 (21-32) mEq/L Anion Gap 14.4 (5-15) BUN 11 (7-18) mg/dL Creatinine 0.8 (0.55-1.02) mg/dL Est Cr Clr Drug Dosing TNP Estimated GFR (MDRD) > 60 (>60) mL/min BUN/Creatinine Ratio 13.8 L (14-18) Glucose 79 (74-106) mg/dL Calcium 8.7 (8.5-10.1) mg/dL Total Bilirubin 0.5 (0.2-1.0) mg/dL AST 69 H (15-37) U/L ALT 99 H (14-59) U/L Alkaline Phosphatase 206 H (46-116) U/L Total Protein 6.4 (6.4-8.2) g/dl Albumin 2.6 L (3.4-5.0) g/dl Globulin 3.8 gm/dL Albumin/Globulin Ratio 0.7 L (1-2) Urine Color (Yellow) Urine Appearance (Clear) Urine pH (5.0-8.0) Ur Specific [place] (1.005-1.030) Urine Protein (Negative) Urine Glucose (UA) (Negative) Urine Ketones (Negative) Urine Occult Blood (Negative) Urine Nitrite (Negative) Urine Bilirubin (Negative) Urine Urobilinogen (0.2-1.0) Ur Leukocyte Esterase (Negative) Urine RBC (0-5) /hpf Urine WBC (0-5) /hpf Ur Squamous Epith Cells (0-5) /hpf Urine Bacteria (FEW) /hpf Urine Mucus (FEW) /hpf Ur Random Creatinine (30.0-125.0) mg/dL U Random Total Protein (0.0-11.8) mg/dL Protein/Creatinin Ratio (0-149) mg/g Blood Type O POSITIVE Gel Antibody Screen Negative Med Orders - Current: Current Medications Acetaminophen (Tylenol) 650 mg PO Q6H PRN PRN Reason: mild pain or fever Benzocaine/Menthol (Dermoplast Pain Relief [place]) 0 gm TOP ASDIRECTED PRN PRN Reason: Perineal Comfort Measure Docusate Sodium (Colace) 100 mg PO BID PRN PRN Reason: Constipation Hydrocortisone Acetate (Anucort-Hc) 25 mg RECTAL BID PRN PRN Reason: Hemorrhoid pain Oxytocin/Lactated Ringer's (Pitocin In Lr 10 Units/1,000 Ml) 10 unit in 1,000 mls @ 100 mls/hr IV TITRATE MARSHAL; Protocol Last Admin: 07/01/19 21:12 Dose: 500 ml/hr, 500 mls/hr Ibuprofen (Motrin) 600 mg PO Q6H PRN PRN Reason: Mild pain or fever Prenat Multivit/Hallam/Iron/Folic Ac ( Plus Iron) 1 each PO DAILY [facility] Birgit Lanier (Tucks) 1 pad TOP ASDIRECTED PRN PRN Reason: Perineal Comfort Measure Discontinued Medications Acetaminophen (Tylenol) 650 mg PO Q4H PRN PRN Reason: neck pain Last Admin: 07/01/19 12:02 Dose: 650 mg Carboprost Tromethamine (Hemabate Ds) Confirm Administered Dose 250 mcg .ROUTE .STK-MED ONE Stop: 07/01/19 20:32 Last Admin: 07/01/19 20:45 Dose: Not Given Carboprost Tromethamine (Hemabate Ds) 250 mcg IM ONETIME ONE Stop: 07/01/19 20:38 Last Admin: 07/01/19 20:33 Dose: 250 mcg Diphenhydramine HCl (Benadryl) 25 mg IVPUSH Q6H PRN PRN Reason: pruritis Diphenoxylate HCl/Atropine (Lomotil 0.025-2.5 Mg) 1 tab PO ONETIME ONE Stop: 07/01/19 20:35 Last Admin: 07/01/19 20:44 Dose: 1 tab Ephedrine Sulfate (Ephedrine Sulfate) 5 mg IVPUSH ASDIRECTED PRN PRN Reason: Hypotension Fentanyl (Sublimaze) 100 mcg EPIDUR Q3H PRN PRN Reason: Pain Fentanyl/Bupivacaine HCl (Fentanyl/Bupivacaine/Ns 2 Mcg-0.125% 250 Ml) 250 ml EPIDUR CONTINUOUS PRN PRN Reason: Pain Last Admin: 07/01/19 15:33 Dose: 250 ml Lactated Ringer's (Ringers, Lactated) 1,000 mls @ 100 mls/hr IV ASDIRECTED MARSHAL Last Admin: 07/01/19 17:41 Dose: 100 mls/hr Oxytocin/Lactated Ringer's (Pitocin In Lr 10 Units/1,000 Ml) 10 unit in 1,000 mls @ 12 mls/hr IV TITRATE MARSHAL; Protocol Last Titration: 07/01/19 20:18 Dose: 500 mls/hr Oxytocin/Lactated Ringer's (Pitocin In Lr 10 Units/1,000 Ml) 10 unit in 1,000 mls @ 100 mls/hr IV .CONTINUOUS MARSHAL Oxytocin/Lactated Ringer's (Pitocin In Lr 10 Units/1,000 Ml) 10 unit in 1,000 mls @ 12 mls/hr IV TITRATE MARSHAL; Protocol Misoprostol (Cytotec) 1,000 mcg RECTAL ONETIME ONE Stop: 07/01/19 12:16 Last Admin: 07/01/19 20:20 Dose: 1,000 mcg Misoprostol (Cytotec) Confirm Administered Dose 1,000 mcg .ROUTE .STK-MED ONE Stop: 07/01/19 19:52 Last Admin: 07/01/19 20:36 Dose: Not Given Nalbuphine HCl (Nubain) 10 mg IVPUSH Q2H PRN PRN Reason: Pain Sodium Chloride (Saline Flush) 10 ml FLUSH ASDIRECTED PRN PRN Reason: Keep Vein Open - Problem List & Annotations (1) 38 weeks gestation of SNOMED Code(s): 54842981 Code(s): Z3A.38 - 38 WEEKS GESTATION OF Status: Acute Current Visit: Yes (2) Gestational hypertension SNOMED Code(s): 651735307 Code(s): O13.9 - GESTATIONAL HTN W/O SIGNIFICANT PROTEINURIA, UNSP TRIMESTER Status: Acute Current Visit: Yes (3) History of pre-eclampsia in prior , currently SNOMED Code(s): 236708468588885, 798322989797255 Code(s): O09.299 - SUPRVSN OF PREG W POOR REPRODCTV OR OBSTET HISTORY, UNSP TRI Status: Acute Current Visit: Yes (4) History of hemorrhage, currently SNOMED Code(s): 33186206 Code(s): O09.299 - SUPRVSN OF PREG W POOR REPRODCTV OR OBSTET HISTORY, UNSP TRI Status: Acute Current Visit: Yes (5) Advanced maternal age in multigravida SNOMED Code(s): 074509260 Code(s): O09.529 - SUPERVISION OF ELDERLY MULTIGRAVIDA, UNSPECIFIED TRIMESTER Status: Acute Current Visit: Yes (6) Vaginal delivery SNOMED Code(s): 126250609 Code(s): O80 - ENCOUNTER FOR FULL-TERM UNCOMPLICATED DELIVERY Status: Acute Current Visit: Yes - Problem List Review Problem List Initiated/Reviewed/Updated: Yes - My Orders Last 24 Hours: My Active Orders 07/01/19 06:35 Resuscitation Status Routine 07/01/19 07:25 RAPID PLASMA REAGIN,RPR [CHEM] Routine 07/01/19 12:13 Vital Signs [RC] PER UNIT ROUTINE 07/01/19 20:58 Patient Status [ADT] Routine Activity as Tolerated [RC] PER UNIT ROUTINE May Shower [RC] ASDIRECTED Notify Provider Vital Signs [RC] ASDIRECTED Vital Signs [RC] ASDIRECTED Acetaminophen [Tylenol] 650 mg PO Q6H PRN Benzocaine/Menthol [Dermoplast Pain Relief [place]] See Dose Instructions TOP ASDIRECTED PRN Docusate Sodium [Colace] 100 mg PO BID PRN Hydrocortisone Acetate [Anucort-HC] 25 mg RECTAL BID PRN Ibuprofen [Motrin] 600 mg PO Q6H PRN Witch Yolande [Tucks] 1 pad TOP ASDIRECTED PRN Assess Lochia [WOMSER] Per Unit Routine Assess Uterine Involution [WOMSER] Per Unit Routine Breast Pump [WOMSER] Per Unit Routine Ice Therapy [OM.PC] Per Unit Routine Medication Administration Instruction [OM.PC] Routine Perineal Care [OM.PC] Per Unit Routine Peripheral IV Discontinue [OM.PC] Routine Sitz Bath [OM.PC] Per Unit Routine 07/01/19 21:00 Oxytocin/Lactated Ringers [Pitocin in LR 10 Units/1,000 ML] 10 unit in 1,000 ml IV TITRATE Heat Therapy [OM.PC] PRN 07/01/19 Dinner Regular Diet [DIET] 07/02/19 05:11 CBC WITH AUTO DIFF [HEME] AM 07/02/19 09:00 Vit with Ca/FA/Iron [ Plus Iron] 1 each PO DAILY 07/02/19 21:00 Heat Therapy [OM.PC] PRN - Plan Plan:: Admit to inpatient following normal spontaneous vaginal delivery Continue Pitocin per unit protocol following delivery of placenta and lactated Ringer's until tolerating regular diet Regular diet Vitals per unit routine Ibuprofen and Tylenol for pain control Assist with breast-feeding as needed Continue to monitor lochia Anticipate discharge home on day #1 or #2 Niall Pendleton MD 9:13 PM 07/01/2019
[2019-07-01] MEDS: Witch Hazel Medicated Pads 40/Jar TOP PRN (22:24)
[2019-07-02] MEDS: Ibuprofen 600 MG Tab PO PRN ×3 (01:15→13:57)
[2019-07-02] MEDS: Prenatal Multivitamin with Calcium/Folic Acid/Iron Tab PO SCH ×2 (07:32→09:24)
--- NOTE | 2019-07-02 09:48 | PCM.SN ---
- Free Text/Narrative Note: Post Progress Note PPD #1 Subjective: Doing well overall. Ambulating without difficulty. Lochia minimal. Reports that she has been able to use a pad overnight without significant soaking of the pad. Voiding without difficulty. Reports that she had multiple episodes of diarrhea after treatment with Cytotec rectally and Hemabate IM. Tolerating regular diet without nausea or vomiting. Pain controlled with oral medications. Reports muscle soreness in her abdomen from fundal massage after delivery. Continues to have right shoulder and neck pain that is overall unchanged. Breast-feeding with minimal difficulty. She denies any headaches, vision changes or epigastric pain. Denies any lightheadedness, dizziness or shortness of breath with ambulation. Objective: Vitals: Vital Signs - 24 hr 07/02/19 07/02/19 03:37 07:36 Temperature 36.8 C 36.9 C Pulse, 59 L 65 Peripheral Respiratory 15 15 Rate Blood Pressure 107/62 125/72 O2 Sat by Pulse 95 98 Oximetry Physical Exam General: Alert and oriented, no acute distress Lungs: Clear to auscultation bilaterally Heart: Regular rate and rhythm Abdomen: Soft, minimal appropriate tenderness, non-distended, fundus midline, nontender, and 2 fingerbreadths below the umbilicus Extremities: Trace edema in bilateral lower extremities to mid shins Laboratory Tests 07/01/19 07/01/19 07/01/19 Range/Units 06:50 07:18 07:25 WBC 9.69 (3.98-10.04) K/mm3 RBC 4.12 (3.98-5.22) M/mm3 Hgb 12.3 D (11.2-15.7) gm/dl Hct 36.1 (34.1-44.9) % MCV 87.6 D (79.4-94.8) fl MCH 29.9 (25.6-32.2) pg MCHC 34.1 (32.2-35.5) g/dl RDW Std Deviation 40.6 (36.4-46.3) fL Plt Count 177 L (182-369) K/mm3 MPV 12.0 (9.4-12.3) fl Neut % (Auto) 76.2 H (34.0-71.1) % Lymph % (Auto) 18.3 L (19.3-51.7) % [place] % (Auto) 4.5 L (4.7-12.5) % Eos % (Auto) 0.7 (0.7-5.8) Baso % (Auto) 0.3 (0.1-1.2) % Neut # (Auto) 7.38 H (1.56-6.13) K/mm3 Lymph # (Auto) 1.77 (1.18-3.74) K/mm3 [place] # (Auto) 0.44 H (0.24-0.36) K/mm3 Eos # (Auto) 0.07 (0.04-0.36) K/mm3 Baso # (Auto) 0.03 (0.01-0.08) K/mm3 Manual Slide Review Normal smear Sodium (136-145) mEq/L Potassium (3.5-5.1) mEq/L Chloride (98-107) mEq/L Carbon Dioxide (21-32) mEq/L Anion Gap (5-15) BUN (7-18) mg/dL Creatinine (0.55-1.02) mg/dL Est Cr Clr Drug Dosing Estimated GFR (MDRD) (>60) mL/min BUN/Creatinine Ratio (14-18) Glucose (74-106) mg/dL Calcium (8.5-10.1) mg/dL Total Bilirubin (0.2-1.0) mg/dL AST (15-37) U/L ALT (14-59) U/L Alkaline Phosphatase (46-116) U/L Total Protein (6.4-8.2) g/dl Albumin (3.4-5.0) g/dl Globulin gm/dL Albumin/Globulin Ratio (1-2) Urine Color Yellow (Yellow) Urine Appearance Slt cloudy H (Clear) Urine pH 7.0 (5.0-8.0) Ur Specific [place] 1.025 (1.005-1.030) Urine Protein Trace H (Negative) Urine Glucose (UA) Negative (Negative) Urine Ketones Negative (Negative) Urine Occult Blood Negative (Negative) Urine Nitrite Negative (Negative) Urine Bilirubin Negative (Negative) Urine Urobilinogen 0.2 (0.2-1.0) Ur Leukocyte Esterase Trace H (Negative) Urine RBC Not seen (0-5) /hpf Urine WBC 0-5 (0-5) /hpf Ur Squamous Epith Cells 0-5 (0-5) /hpf Urine Bacteria Few (FEW) /hpf Urine Mucus Few (FEW) /hpf Ur Random Creatinine 176.9 H (30.0-125.0) mg/dL U Random Total Protein 34.7 H (0.0-11.8) mg/dL Protein/Creatinin Ratio 196.2 H (0-149) mg/g Blood Type Gel Antibody Screen 07/01/19 07/01/19 07/02/19 Range/Units 07:25 07:25 05:15 WBC 12.79 H (3.98-10.04) K/mm3 RBC 3.40 L (3.98-5.22) M/mm3 Hgb 10.0 L D (11.2-15.7) gm/dl Hct 30.0 L (34.1-44.9) % MCV 88.2 (79.4-94.8) fl MCH 29.4 (25.6-32.2) pg MCHC 33.3 (32.2-35.5) g/dl RDW Std Deviation 40.1 (36.4-46.3) fL Plt Count 153 L (182-369) K/mm3 MPV 11.9 (9.4-12.3) fl Neut % (Auto) 84.9 H (34.0-71.1) % Lymph % (Auto) 10.5 L (19.3-51.7) % [place] % (Auto) 4.0 L (4.7-12.5) % Eos % (Auto) 0.2 L (0.7-5.8) Baso % (Auto) 0.2 (0.1-1.2) % Neut # (Auto) 10.87 H (1.56-6.13) K/mm3 Lymph # (Auto) 1.34 (1.18-3.74) K/mm3 [place] # (Auto) 0.51 H (0.24-0.36) K/mm3 Eos # (Auto) 0.03 L (0.04-0.36) K/mm3 Baso # (Auto) 0.02 (0.01-0.08) K/mm3 Manual Slide Review Sodium 132 L (136-145) mEq/L Potassium 3.4 L (3.5-5.1) mEq/L Chloride 99 (98-107) mEq/L Carbon Dioxide 22 (21-32) mEq/L Anion Gap 14.4 (5-15) BUN 11 (7-18) mg/dL Creatinine 0.8 (0.55-1.02) mg/dL Est Cr Clr Drug Dosing TNP Estimated GFR (MDRD) > 60 (>60) mL/min BUN/Creatinine Ratio 13.8 L (14-18) Glucose 79 (74-106) mg/dL Calcium 8.7 (8.5-10.1) mg/dL Total Bilirubin 0.5 (0.2-1.0) mg/dL AST 69 H (15-37) U/L ALT 99 H (14-59) U/L Alkaline Phosphatase 206 H (46-116) U/L Total Protein 6.4 (6.4-8.2) g/dl Albumin 2.6 L (3.4-5.0) g/dl Globulin 3.8 gm/dL Albumin/Globulin Ratio 0.7 L (1-2) Urine Color (Yellow) Urine Appearance (Clear) Urine pH (5.0-8.0) Ur Specific [place] (1.005-1.030) Urine Protein (Negative) Urine Glucose (UA) (Negative) Urine Ketones (Negative) Urine Occult Blood (Negative) Urine Nitrite (Negative) Urine Bilirubin (Negative) Urine Urobilinogen (0.2-1.0) Ur Leukocyte Esterase (Negative) Urine RBC (0-5) /hpf Urine WBC (0-5) /hpf Ur Squamous Epith Cells (0-5) /hpf Urine Bacteria (FEW) /hpf Urine Mucus (FEW) /hpf Ur Random Creatinine (30.0-125.0) mg/dL U Random Total Protein (0.0-11.8) mg/dL Protein/Creatinin Ratio (0-149) mg/g Blood Type O POSITIVE Gel Antibody Screen Negative ASSESSMENT: 39-year-old female -0-0-3 s/p normal vaginal delivery PPD #1, complicated by gestational hypertension necessitating delivery, history of preeclampsia, history of hemorrhage, right hip complications after last delivery, history of genital herpes and history of abnormal Pap smear PLAN: Doing well Breast-feeding with minimal difficulty. Assist as needed Lochia minimal. Continue to monitor for appropriate lochia. Continue routine care Anticipated amount of drop in hematocrit with EBL of 500 mL. Patient's hematocrit this morning was 30.0 which was a drop from 36.1 on admission. Patient given warning signs for severe features of preeclampsia and she states understanding. Anticipate discharge home today if is able to be discharged home Niall Pendleton MD 9:46 AM 07/02/2019
--- NOTE | 2019-07-02 09:59 | PCM.DCSUM1 ---
Discharge Summary - Hospital Course Free Text/Narrative:: Stage I: Yaneli Bazan was admitted for medically indicated induction of labor at 38 weeks gestational age after she was diagnosed with gestational hypertension. She had initially come in for evaluation for not feeling well and was noted to have mild range blood pressures on admission. Her blood work testing was overall normal but did show some mildly elevated liver enzymes that did not meet parameters for preeclampsia. She continued to have mild range blood pressures throughout her monitoring and decision was made for induction of labor due to gestational hypertension. On admission her cervix was dilated to 3 cm. She was GBS negative. She had a 16 [place] bulb introduced manually through the cervix and filled with 50 mL of sterile saline. She was started on Pitocin for induction of labor. She was given an epidural for anesthesia. She had artificial rupture of membranes with an [place] with clear fluid that returned. She progressed to complete and pushing. Stage II: On 07/01/2019 she had a normal vaginal delivery of a live female at 20:14. Apgars of 8 & 9. Weight of 3180 g (7 lbs 0.2 oz). Length of 19.5 inches. There was a single nuchal cord that was reduced prior to delivery. was delivered in ALEKSANDAR position. The cord was doubly clamped and cut by father of the . was placed on mother's abdomen. Stage III: She had a spontaneous delivery of an intact placenta in [place] presentation. Three vessel cord. She was given pitocin and fundal massage. She had no lacerations after delivery. She had uterine atony of the lower uterine segment and was given Cytotec 1000 mcg rectally. She continued to have moderate amount of bleeding with ongoing lower uterine segment atony and was given Hemabate 250 mcg IM x1 dose. She was noted to have good uterine tone with good lower uterine segment tone and had minimal bleeding after the dose of Hemabate. She was given Lomotil 1 tablet to reduce chances for diarrhea. Mom and baby were stable to recovery. EBL of 500 mL. HPI Initial Comments: Stage I: Yaneli Bazan was admitted for medically indicated induction of labor at 38 weeks gestational age after she was diagnosed with gestational hypertension. She had initially come in for evaluation for not feeling well and was noted to have mild range blood pressures on admission. Her blood work testing was overall normal but did show some mildly elevated liver enzymes that did not meet parameters for preeclampsia. She continued to have mild range blood pressures throughout her monitoring and decision was made for induction of labor due to gestational hypertension. On admission her cervix was dilated to 3 cm. She was GBS negative. She had a 16 [place] bulb introduced manually through the cervix and filled with 50 mL of sterile saline. She was started on Pitocin for induction of labor. She was given an epidural for anesthesia. She had artificial rupture of membranes with an [place] with clear fluid that returned. She progressed to complete and pushing. Stage II: On 07/01/2019 she had a normal vaginal delivery of a live female infant at 20:14. Apgars of 8 & 9. Weight of 3180 g (7 lbs 0.2 oz). Length of 19.5 inches. There was a single nuchal cord that was reduced prior to delivery. Infant was delivered in ALEKSANDAR position. The cord was doubly clamped and cut by father of the . was placed on mother's abdomen. Stage III: She had a spontaneous delivery of an intact placenta in [place] presentation. Three vessel cord. She was given pitocin and fundal massage. She had no lacerations after delivery. She had uterine atony of the lower uterine segment and was given Cytotec 1000 mcg rectally. She continued to have moderate amount of bleeding with ongoing lower uterine segment atony and was given Hemabate 250 mcg IM x1 dose. She was noted to have good uterine tone with good lower uterine segment tone and had minimal bleeding after the dose of Hemabate. She was given Lomotil 1 tablet to reduce chances for diarrhea. Mom and baby were stable to recovery. EBL of 500 mL. Brief History: Stage I: Yaneli Bazan was admitted for medically indicated induction of labor at 38 weeks gestational age after she was diagnosed with gestational hypertension. She had initially come in for evaluation for not feeling well and was noted to have mild range blood pressures on admission. Her blood work testing was overall normal but did show some mildly elevated liver enzymes that did not meet parameters for preeclampsia. She continued to have mild range blood pressures throughout her monitoring and decision was made for induction of labor due to gestational hypertension. On admission her cervix was dilated to 3 cm. She was GBS negative. She had a 16 [place] bulb introduced manually through the cervix and filled with 50 mL of sterile saline. She was started on Pitocin for induction of labor. She was given an epidural for anesthesia. She had artificial rupture of membranes with an [place] with clear fluid that returned. She progressed to complete and pushing. Stage II: On 07/01/2019 she had a normal vaginal delivery of a live female at 20: 14. Apgars of 8 & 9. Weight of 3180 g (7 lbs 0.2 oz). Length of 19.5 inches. There was a single nuchal cord that was reduced prior to delivery. Infant was delivered in ALEKSANDAR position. The cord was doubly clamped and cut by father of the . Infant was placed on mother's abdomen. Stage III: She had a spontaneous delivery of an intact placenta in [place] presentation. Three vessel cord. She was given pitocin and fundal massage. She had no lacerations after delivery. She had uterine atony of the lower uterine segment and was given Cytotec 1000 mcg rectally. She continued to have moderate amount of bleeding with ongoing lower uterine segment atony and was given Hemabate 250 mcg IM x1 dose. She was noted to have good uterine tone with good lower uterine segment tone and had minimal bleeding after the dose of Hemabate. She was given Lomotil 1 tablet to reduce chances for diarrhea. Mom and baby were stable to recovery. EBL of 500 mL. Diagnosis: Stroke: No - Discharge Data Discharge Date: 07/02/19 Discharge Disposition: Home, Self-Care 01 Condition: Good - Referral to Home Health Primary Care Physician: Annemarie Caldwell MD - Discharge Diagnosis/Problem(s) (1) 38 weeks gestation of SNOMED Code(s): 71564927 ICD Code: Z3A.38 - 38 WEEKS GESTATION OF Status: Acute Current Visit: Yes (2) Gestational hypertension SNOMED Code(s): 560922446 ICD Code: O13.9 - GESTATIONAL HTN W/O SIGNIFICANT PROTEINURIA, UNSP TRIMESTER Status: Acute Current Visit: Yes (3) History of pre-eclampsia in prior , currently SNOMED Code(s): 063547379321525, 403092559881656 ICD Code: O09.299 - SUPRVSN OF PREG W POOR REPRODCTV OR OBSTET HISTORY, UNSP TRI Status: Acute Current Visit: Yes (4) History of hemorrhage, currently SNOMED Code(s): 36485508 ICD Code: O09.299 - SUPRVSN OF PREG W POOR REPRODCTV OR OBSTET HISTORY, UNSP TRI Status: Acute Current Visit: Yes (5) Advanced maternal age in multigravida SNOMED Code(s): 846044935 ICD Code: O09.529 - SUPERVISION OF ELDERLY MULTIGRAVIDA, UNSPECIFIED TRIMESTER Status: Acute Current Visit: Yes (6) Vaginal delivery SNOMED Code(s): 074100985 ICD Code: O80 - ENCOUNTER FOR FULL-TERM UNCOMPLICATED DELIVERY Status: Acute Current Visit: Yes - Patient Summary/Data Complications: None Consults: None Hospital Course: Yaneli Bazan was admitted for medically indicated induction of labor with gestational hypertension. Patient had initially presented for evaluation after not feeling well and was noted to have mild range blood pressures that persisted throughout the morning. Decision was made to proceed with induction of labor. On admission her cervix was dilated to 3 cm. She was GBS negative.she had a 16 [place] Garcia bulb placed manually through the cervix and filled with 50 mL of sterile saline. She was given pitocin for augmentation. She was given an epidural for anesthesia. She had artificial rupture of membranes with clear fluid. She progressed to complete and began pushing. On 07/01/2019 she had a normal vaginal delivery of a live female infant at 20:14. Apgars of 8 and 9. Weight of 3180 g (7 pounds 0.2 ounces). She was given Cytotec 1000 mcg rectally and Hemabate 250 mcg IM for lower uterine segment atony after delivery. Her course was uneventful. Her pain was well controlled and she had minimal lochia. She was ambulating, tolerating a regular diet and voiding normally. She was breast-feeding with minimal difficulty. She was afebrile and her hematocrit was 30.0 on day #1. She desired to be discharged home in the evening of PPD #1. Her blood type is O+. - Patient Instructions Diet: Regular Diet as Tolerated Activity: Apply Ice, As Tolerated Activity, Other: Nothing in the vagina for 6 weeks Driving: May Drive Today Showering/Bathing: May Shower Notify Provider of: Fever, Increased Pain, Swelling and Redness, Drainage, Nausea and/or Vomiting Other/Special Instructions: Please contact your physician's office if you have heavy vaginal bleeding enough to soak a pad in less than an hour for several hours. Monitor for any signs of an infection in the breasts with severe pain or redness of the breast. Monitor for any signs of worsening blood pressure with severe headache that does not improve with medication, spots in your vision or upper abdominal pain. - Discharge Plan *PRESCRIPTION DRUG MONITORING PROGRAM REVIEWED*: Not Applicable *COPY OF PRESCRIPTION DRUG MONITORING REPORT IN PATIENT ROSA: Not Applicable Home Medications: Home Meds No122/Iron/Folic Acid [ Multi Tablet] 1 each PO DAILY 07/01/19 [History] Acetaminophen [Tylenol] 650 mg PO Q6H PRN tablet 07/02/19 [Rx] Benzocaine/Menthol [Dermoplast Pain Relief [place]] 1 spray TOP ASDIRECTED PRN canister 07/02/19 [Rx] Docusate Sodium [Colace] 100 mg PO BID PRN cap 07/02/19 [Rx] Hydrocortisone Acetate [Anucort-HC] 25 mg RECTAL BID PRN supp 07/02/19 [Rx] Ibuprofen [Motrin] 600 mg PO Q6H PRN tablet 07/02/19 [Rx] Witch Yolande [Tucks] 1 pad TOP ASDIRECTED PRN pad 07/02/19 [Rx] Patient Handouts: Warning Signs During , Hypertension During , [id number], Vaginal Delivery, Care After Referrals: Annemarie Caldwell MD [Primary Care Provider] - (Follow-up in clinic for blood pressure check sometime this week and then with Dr. Caldwell in 2 to 6 weeks based on recommendations from that blood pressure check for routine check or earlier as needed.) - Discharge Summary/Plan Comment DC Time >30 min.: No - Patient Data Vitals - Most Recent: Last Vital Signs Temp 36.9 C 07/02/19 07:36 Pulse 65 07/02/19 07:36 Resp 15 07/02/19 07:36 BP 125/72 07/02/19 07:36 Pulse Ox 98 07/02/19 07:36 Weight - Most Recent: 85.729 kg I&O - Last 24 hours: Intake & Output 07/01/19 07/02/19 07/02/19 22:59 06:59 14:59 Intake Total 1450 1000 Output Total 500 Balance 950 1000 Lab Results - Last 24 hrs: Laboratory Results - last 24 hr 07/01/19 07/01/19 07/02/19 Range/Units 06:50 07:25 05:15 WBC 12.79 H (3.98-10.04) K/mm3 RBC 3.40 L (3.98-5.22) M/mm3 Hgb 10.0 L D (11.2-15.7) gm/dl Hct 30.0 L (34.1-44.9) % MCV 88.2 (79.4-94.8) fl MCH 29.4 (25.6-32.2) pg MCHC 33.3 (32.2-35.5) g/dl RDW Std Deviation 40.1 (36.4-46.3) fL Plt Count 153 L (182-369) K/mm3 MPV 11.9 (9.4-12.3) fl Neut % (Auto) 84.9 H (34.0-71.1) % Lymph % (Auto) 10.5 L (19.3-51.7) % [place] % (Auto) 4.0 L (4.7-12.5) % Eos % (Auto) 0.2 L (0.7-5.8) Baso % (Auto) 0.2 (0.1-1.2) % Neut # (Auto) 10.87 H (1.56-6.13) K/mm3 Lymph # (Auto) 1.34 (1.18-3.74) K/mm3 [place] # (Auto) 0.51 H (0.24-0.36) K/mm3 Eos # (Auto) 0.03 L (0.04-0.36) K/mm3 Baso # (Auto) 0.02 (0.01-0.08) K/mm3 Urine Color Yellow (Yellow) Urine Appearance Slt cloudy H (Clear) Urine pH 7.0 (5.0-8.0) Ur Specific [place] 1.025 (1.005-1.030) Urine Protein Trace H (Negative) Urine Glucose (UA) Negative (Negative) Urine Ketones Negative (Negative) Urine Occult Blood Negative (Negative) Urine Nitrite Negative (Negative) Urine Bilirubin Negative (Negative) Urine Urobilinogen 0.2 (0.2-1.0) Ur Leukocyte Esterase Trace H (Negative) Urine RBC Not seen (0-5) /hpf Urine WBC 0-5 (0-5) /hpf Ur Squamous Epith Cells 0-5 (0-5) /hpf Urine Bacteria Few (FEW) /hpf Urine Mucus Few (FEW) /hpf Blood Type O POSITIVE Gel Antibody Screen Negative Med Orders - Current: Current Medications Acetaminophen (Tylenol) 650 mg PO Q6H PRN PRN Reason: mild pain or fever Benzocaine/Menthol (Dermoplast Pain Relief [place]) 0 gm TOP ASDIRECTED PRN PRN Reason: Perineal Comfort Measure Docusate Sodium (Colace) 100 mg PO BID PRN PRN Reason: Constipation Hydrocortisone Acetate (Anucort-Hc) 25 mg RECTAL BID PRN PRN Reason: Hemorrhoid pain Oxytocin/Lactated Ringer's (Pitocin In Lr 10 Units/1,000 Ml) 10 unit in 1,000 mls @ 100 mls/hr IV TITRATE MARSHAL; Protocol Last Admin: 07/01/19 21:12 Dose: 500 ml/hr, 500 mls/hr Ibuprofen (Motrin) 600 mg PO Q6H PRN PRN Reason: Mild pain or fever Last Admin: 07/02/19 07:27 Dose: 600 mg Prenat Multivit/Customer Relations Representative/Iron/Folic Ac ( Plus Iron) 1 each PO DAILY MARSHAL Last Admin: 07/02/19 09:24 Dose: Not Given Birgit Lanier (Maurice) 1 pad TOP ASDIRECTED PRN PRN Reason: Perineal Comfort Measure Last Admin: 07/01/19 22:24 Dose: 1 applic Discontinued Medications Acetaminophen (Tylenol) 650 mg PO Q4H PRN PRN Reason: neck pain Last Admin: 07/01/19 12:02 Dose: 650 mg Bupivacaine HCl (Sensorcaine-Mpf 0.25%) 10 ml .ROUTE .STK-MED ONE Stop: 07/01/19 14:01 Carboprost Tromethamine (Hemabate Ds) Confirm Administered Dose 250 mcg .ROUTE .STK-MED ONE Stop: 07/01/19 20:32 Last Admin: 07/01/19 20:45 Dose: Not Given Carboprost Tromethamine (Hemabate Ds) 250 mcg IM ONETIME ONE Stop: 07/01/19 20:38 Last Admin: 07/01/19 20:33 Dose: 250 mcg Diphenhydramine HCl (Benadryl) 25 mg IVPUSH Q6H PRN PRN Reason: pruritis Diphenoxylate HCl/Atropine (Lomotil 0.025-2.5 Mg) 1 tab PO ONETIME ONE Stop: 07/01/19 20:35 Last Admin: 07/01/19 20:44 Dose: 1 tab Ephedrine Sulfate (Ephedrine Sulfate) 5 mg IVPUSH ASDIRECTED PRN PRN Reason: Hypotension Fentanyl (Sublimaze) 100 mcg EPIDUR Q3H PRN PRN Reason: Pain Fentanyl/Bupivacaine HCl (Fentanyl/Bupivacaine/Ns 2 Mcg-0.125% 250 Ml) 250 ml EPIDUR CONTINUOUS PRN PRN Reason: Pain Last Admin: 07/01/19 15:33 Dose: 250 ml Lactated Ringer's (Ringers, Lactated) 1,000 mls @ 100 mls/hr IV ASDIRECTED MARSHAL Last Admin: 07/01/19 17:41 Dose: 100 mls/hr Oxytocin/Lactated Ringer's (Pitocin In Lr 10 Units/1,000 Ml) 10 unit in 1,000 mls @ 12 mls/hr IV TITRATE MARSHAL; Protocol Last Titration: 07/01/19 20:18 Dose: 500 mls/hr Oxytocin/Lactated Ringer's (Pitocin In Lr 10 Units/1,000 Ml) 10 unit in 1,000 mls @ 100 mls/hr IV .CONTINUOUS MARSHAL Oxytocin/Lactated Ringer's (Pitocin In Lr 10 Units/1,000 Ml) 10 unit in 1,000 mls @ 12 mls/hr IV TITRATE MARSHAL; Protocol Misoprostol (Cytotec) 1,000 mcg RECTAL ONETIME ONE Stop: 07/01/19 12:16 Last Admin: 07/01/19 20:20 Dose: 1,000 mcg Misoprostol (Cytotec) Confirm Administered Dose 1,000 mcg .ROUTE .STK-MED ONE Stop: 07/01/19 19:52 Last Admin: 07/01/19 20:36 Dose: Not Given Nalbuphine HCl (Nubain) 10 mg IVPUSH Q2H PRN PRN Reason: Pain Sodium Chloride (Saline Flush) 10 ml FLUSH ASDIRECTED PRN PRN Reason: Keep Vein Open
--- NOTE | 2019-07-02 11:02 | PCM48HPAN ---
Post Anesthesia Note - EVALUATION WITHIN 48HRS OF ANESTHETIC Vital Signs in Normal Range: Yes Patient Participated in Evaluation: Yes Respiratory Function Stable: Yes Airway Patent: Yes Cardiovascular Function Stable: Yes Hydration Status Stable: Yes Pain Control Satisfactory: Yes Nausea and Vomiting Control Satisfactory: Yes Mental Status Recovered: Yes Vital Signs: Last Vital Signs Temp 36.9 C 07/02/19 07:36 Pulse 65 07/02/19 07:36 Resp 15 07/02/19 07:36 BP 125/72 07/02/19 07:36 Pulse Ox 98 07/02/19 07:36 - COMMENTS/OBSERVATIONS Free Text/Narrative:: Up ambulating today. No further concerns or questions at this time.
[2019-07-02] MEDS: Acetaminophen 325 MG Tab PO PRN ×2 (11:45→17:28)
[2019-07-02] MEDS: Witch Hazel Medicated Pads 40/Jar TOP PRN (20:48)
[2019-07-02 21:24] VITALS: BP 127/68; PULSE 63
== END 2019-07-02 21:25 | disposition home or self-care (01) | DRG 807 ==
LOC: JD.OB 06:31 → JD.OBCHECK 06:31 → JD.OB 06:33 → JD.OBCHECK 12:30 → JD.OB 12:30 → OBSVTOIN 20:14 → JD.OB 20:15
PROVIDERS: ADMIT Obstetrics & Gynecology; ATTEND Obstetrics & Gynecology
PROC: 10E0XZZ Delivery of Products of Conception, External Approach (ICD-10-PCS; principal; 2019-07-01)
PROC: 10907ZC Drainage of Amniotic Fluid, Therapeutic from Products of Conception, Via Natural or Artificial Opening (ICD-10-PCS; 2019-07-01)
PROC: 3E0R3BZ Introduction of Anesthetic Agent into Spinal Canal, Percutaneous Approach (ICD-10-PCS; 2019-07-01)
DX: O13.4 Gestational [pregnancy-induced] hypertension without significant proteinuria, complicating childbirth (principal); Z37.0 Single live birth; O69.81X0 Labor and delivery complicated by cord around neck, without compression, not applicable or unspecified; Z3A.38 38 weeks gestation of pregnancy; Z88.1 Allergy status to other antibiotic agents; Z87.891 Personal history of nicotine dependence
CPT/HCPCS: 36415; 51702; 59025; 59409; 80053; 81001; 82570; 84156; 85025; 86592; 86850; 86900; 86901; A9270-GY; J2590; J3010; J3490; J7120

== ENCOUNTER 2019-10-21 09:08 | Day surgery (SDC) | payer OTHER ==
[2019-10-21] MEDS ORDERED: Ondansetron 4 MG/2 ML SDV IVPUSH ONE (09:37)
[2019-10-21] MEDS ORDERED: Sodium Chloride 0.9% 1,000 ML IV STA (09:37)
[2019-10-21] MEDS ORDERED: Sodium Chloride 0.9% 10 ML Syringe FLUSH PRN (09:37)
[2019-10-21] MEDS ORDERED: HYDROmorphone 1 MG/ML Syringe IVPUSH ONE (09:38)
--- NOTE | 2019-10-21 10:05 | EDM.PDOC ---
ED HPI GENERAL MEDICAL PROBLEM - General Chief Complaint: Abdominal Pain Stated Complaint: ABDOMINAL PAIN Time Seen by Provider: 10/21/19 09:28 Source of Information: Reports: Patient History Limitations: Reports: No Limitations - History of Present Illness INITIAL COMMENTS - FREE TEXT/NARRATIVE: The patient presents with RUQ abdominal pain. A couple days ago she felt like she was constipated and she took some magnesium citrate. She had a good BM and felt good. Last night she had a chili cheese dog and she had nausea and vomiting and developed RUQ abdominal pain that radiates to her right shoulder and back. She has a gallbladder but her appendix was removed last year. She had a baby a few months ago and she is breast feeding. She has no dysuria or hematuria. She does not think she is . She has no chest pain, shortness of breath, fever, chills, or cough. Onset: Gradual Duration: Day(s): Location: Reports: Abdomen Quality: Reports: Sharp Severity: Moderate Improves with: Reports: None Worsens with: Reports: None Associated Symptoms: Reports: Nausea/Vomiting. Denies: Chest Pain, Cough, Fever /Chills, Headaches, Shortness of Breath Right Abdomen Pain Score (Numeric/FACES): 8 - Related Data Allergies Allergy/AdvReac Type Severity Reaction Status Date / Time erythromycin base AdvReac Intermediate Change Verified 10/21/19 09:25 Mental Status Home Meds: Home Meds No122/Iron/Folic Acid [ Multi Tablet] 1 each PO DAILY 07/01/19 [History] Acetaminophen [Tylenol] 650 mg PO Q6H PRN tablet 07/02/19 [Rx] Benzocaine/Menthol [Dermoplast Pain Relief [place]] 1 spray TOP ASDIRECTED PRN canister 07/02/19 [Rx] Docusate Sodium [Colace] 100 mg PO BID PRN cap 07/02/19 [Rx] Ibuprofen [Motrin] 600 mg PO Q6H PRN tablet 07/02/19 [Rx] jorge Griffin [Tucks] 1 pad TOP ASDIRECTED PRN pad 07/02/19 [Rx] Past Medical History HEENT History: Reports: Other (See Below) Other 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 History: 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: , 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 (See Below) 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: hemorrhage with vaginal delivery of 2nd , preeclampsia with 2nd Musculoskeletal History: Reports: Other (See Below) Other Musculoskeletal History: right hip arthroplasty after last delivery for labrum tear - Past Surgical History HEENT Surgical History: Reports: Tonsillectomy, Other (See Below) GI Surgical History: Reports: Appendectomy Musculoskeletal Surgical History: Reports: Arthroscopic Knee, Other (See Below) Social & Family History - Family History Family Medical History: Noncontributory HEENT: Reports: Macular Degeneration Cardiac: Reports: Hypertension Endocrine/Metabolic: Reports: Diabetes, type II - Tobacco Use Smoking Status *Q: Never Smoker Second Hand Smoke Exposure: No - Caffeine Use Caffeine Use: Reports: None - Recreational Drug Use Recreational Drug Use: No - Living Situation & Occupation Living situation: Reports: , with Significant Other, with Family ED ROS GENERAL - Review of Systems Review Of Systems: See Below Constitutional: Reports: No Symptoms HEENT: Reports: No Symptoms Respiratory: Reports: No Symptoms Cardiovascular: Reports: No Symptoms Endocrine: Reports: No Symptoms GI/Abdominal: Reports: Abdominal Pain, Nausea, Vomiting. Denies: Diarrhea : Reports: No Symptoms Musculoskeletal: Reports: Shoulder Pain, Back Pain Skin: Reports: No Symptoms Neurological: Reports: No Symptoms ED EXAM, GI/ABD - Physical Exam Exam: See Below Exam Limited By: No Limitations General Appearance: Alert, No Apparent Distress Ears: Normal External Exam Nose: Normal Inspection Head: Atraumatic, Normocephalic Neck: Normal Inspection Respiratory/Chest: No Respiratory Distress, Lungs Clear, Normal Breath Sounds Cardiovascular: Regular Rate, Rhythm, No Edema, No Murmur GI/Abdominal Exam: Soft, Non-Tender, No Organomegaly, No Mass Back Exam: Normal Inspection Extremities: Normal Inspection Course - Vital Signs Last Recorded V/S: Last Vital Signs Temp 97.8 F 10/21/19 09:20 Pulse 90 10/21/19 09:20 Resp 18 10/21/19 09:20 BP 133/93 H 10/21/19 09:20 Pulse Ox 99 10/21/19 09:20 - Orders/Labs/Meds Orders: Active Orders 24 hr Category Date Time Status Peripheral IV Care [RC] . DIRECTED Care 10/21/19 09:37 Active Abdomen Ltd [US] Stat Exams 10/21/19 09:37 Taken Sodium Chloride 0.9% [Saline Flush] Med 10/21/19 09:37 Active 10 ml FLUSH ASDIRECTED PRN cefTRIAXone [Rocephin] 2 gm Med 10/21/19 12:01 Active Sodium Chloride 0.9% [Normal Saline] 100 ml IV ONETIME ED Antiemetic Medication Reflex [OM.PC] Stat Oth 10/21/19 09:37 Ordered Peripheral IV Insertion Adult [OM.PC] Stat Oth 10/21/19 09:37 Ordered Medication Orders Ceftriaxone Sodium 2 gm/ (Sodium Chloride) 100 mls @ 200 mls/hr IV ONETIME ONE Stop: 10/21/19 12:30 Sodium Chloride (Saline Flush) 10 ml FLUSH ASDIRECTED PRN PRN Reason: Keep Vein Open Last Admin: 10/21/19 09:59 Dose: 10 ml Labs: Laboratory Tests 10/21/19 10/21/19 10/21/19 Range/Units 09:40 09:40 09:40 WBC 8.65 (3.98-10.04) K/mm3 RBC 4.53 (3.98-5.22) M/mm3 Hgb 12.3 D (11.2-15.7) gm/dl Hct 37.7 (34.1-44.9) % MCV 83.2 D (79.4-94.8) fl MCH 27.2 (25.6-32.2) pg MCHC 32.6 (32.2-35.5) g/dl RDW Std Deviation 37.9 (36.4-46.3) fL Plt Count 251 D (182-369) K/mm3 MPV 9.6 (9.4-12.3) fl Neut % (Auto) 79.1 H (34.0-71.1) % Lymph % (Auto) 14.5 L (19.3-51.7) % [place] % (Auto) 5.7 (4.7-12.5) % Eos % (Auto) 0.3 L (0.7-5.8) Baso % (Auto) 0.2 (0.1-1.2) % Neut # (Auto) 6.84 H (1.56-6.13) K/mm3 Lymph # (Auto) 1.25 (1.18-3.74) K/mm3 [place] # (Auto) 0.49 H (0.24-0.36) K/mm3 Eos # (Auto) 0.03 L (0.04-0.36) K/mm3 Baso # (Auto) 0.02 (0.01-0.08) K/mm3 Sodium 140 (136-145) mEq/L Potassium 3.5 (3.5-5.1) mEq/L Chloride 105 (98-107) mEq/L Carbon Dioxide 24 (21-32) mEq/L Anion Gap 14.5 (5-15) BUN 9 (7-18) mg/dL Creatinine 0.6 (0.55-1.02) mg/dL Est Cr Clr Drug Dosing 134.78 mL/min Estimated GFR (MDRD) > 60 (>60) mL/min BUN/Creatinine Ratio 15.0 (14-18) Glucose 99 (74-106) mg/dL Calcium 8.8 (8.5-10.1) mg/dL Total Bilirubin 0.4 (0.2-1.0) mg/dL AST 15 (15-37) U/L ALT 21 (14-59) U/L Alkaline Phosphatase 84 (46-116) U/L Total Protein 6.9 (6.4-8.2) g/dl Albumin 3.9 (3.4-5.0) g/dl Globulin 3.0 gm/dL Albumin/Globulin Ratio 1.3 (1-2) Lipase 86 (73-393) U/L HCG, Qual Negative (NEGATIVE) Urine Color (Yellow) Urine Appearance (Clear) Urine pH (5.0-8.0) Ur Specific [place] (1.005-1.030) Urine Protein (Negative) Urine Glucose (UA) (Negative) Urine Ketones (Negative) Urine Occult Blood (Negative) Urine Nitrite (Negative) Urine Bilirubin (Negative) Urine Urobilinogen (0.2-1.0) Ur Leukocyte Esterase (Negative) Urine RBC (0-5) /hpf Urine WBC (0-5) /hpf Ur Epithelial Cells (0-5) /hpf Urine Bacteria (FEW) /hpf Urine Mucus (FEW) /hpf 10/21/19 Range/Units 10:00 WBC (3.98-10.04) K/mm3 RBC (3.98-5.22) M/mm3 Hgb (11.2-15.7) gm/dl Hct (34.1-44.9) % MCV (79.4-94.8) fl MCH (25.6-32.2) pg MCHC (32.2-35.5) g/dl RDW Std Deviation (36.4-46.3) fL Plt Count (182-369) K/mm3 MPV (9.4-12.3) fl Neut % (Auto) (34.0-71.1) % Lymph % (Auto) (19.3-51.7) % [place] % (Auto) (4.7-12.5) % Eos % (Auto) (0.7-5.8) Baso % (Auto) (0.1-1.2) % Neut # (Auto) (1.56-6.13) K/mm3 Lymph # (Auto) (1.18-3.74) K/mm3 [place] # (Auto) (0.24-0.36) K/mm3 Eos # (Auto) (0.04-0.36) K/mm3 Baso # (Auto) (0.01-0.08) K/mm3 Sodium (136-145) mEq/L Potassium (3.5-5.1) mEq/L Chloride (98-107) mEq/L Carbon Dioxide (21-32) mEq/L Anion Gap (5-15) BUN (7-18) mg/dL Creatinine (0.55-1.02) mg/dL Est Cr Clr Drug Dosing mL/min Estimated GFR (MDRD) (>60) mL/min BUN/Creatinine Ratio (14-18) Glucose (74-106) mg/dL Calcium (8.5-10.1) mg/dL Total Bilirubin (0.2-1.0) mg/dL AST (15-37) U/L ALT (14-59) U/L Alkaline Phosphatase (46-116) U/L Total Protein (6.4-8.2) g/dl Albumin (3.4-5.0) g/dl Globulin gm/dL Albumin/Globulin Ratio (1-2) Lipase (73-393) U/L HCG, Qual (NEGATIVE) Urine Color Yellow (Yellow) Urine Appearance Clear (Clear) Urine pH 8.5 H (5.0-8.0) Ur Specific [place] 1.020 (1.005-1.030) Urine Protein Negative (Negative) Urine Glucose (UA) Negative (Negative) Urine Ketones 2+ H (Negative) Urine Occult Blood Negative (Negative) Urine Nitrite Negative (Negative) Urine Bilirubin Negative (Negative) Urine Urobilinogen 0.2 (0.2-1.0) Ur Leukocyte Esterase Negative (Negative) Urine RBC 0-5 (0-5) /hpf Urine WBC 0-5 (0-5) /hpf Ur Epithelial Cells 5-10 H (0-5) /hpf Urine Bacteria Few (FEW) /hpf Urine Mucus Many H (FEW) /hpf Meds: Medications Generic Name Dose Route Start Last Admin Trade Name Freq PRN Reason Stop Dose Admin Ceftriaxone Sodium 2 gm/ 100 mls @ 200 mls/hr 10/21/19 12:01 Sodium Chloride IV 10/21/19 12:30 ONETIME ONE Sodium Chloride 10 ml 10/21/19 09:37 10/21/19 09:59 Saline Flush FLUSH 10 ml ASDIRECTED PRN Administration Keep Vein Open Discontinued Medications Generic Name Dose Route Start Last Admin Trade Name Freq PRN Reason Stop Dose Admin Hydromorphone HCl 1 mg 10/21/19 09:38 10/21/19 10:00 Dilaudid IVPUSH 10/21/19 09:39 1 mg ONETIME ONE Administration Sodium Chloride 1,000 mls @ 1,000 mls/hr 10/21/19 09:37 10/21/19 09:58 Normal Saline IV 10/21/19 10:36 1,000 mls/hr .BOLUS STA Administration Ondansetron HCl 4 mg 10/21/19 09:37 10/21/19 09:59 Zofran IVPUSH 10/21/19 09:38 4 mg ONETIME ONE Administration - Re-Assessments/Exams Free Text/Narrative Re-Assessment/Exam: 10/21/19 10:05 I ordered an IV NS 1L bolus, zofran 4mg IV, dilaudid 1mg IV, labs, UA and an US of her gallbladder. 10/21/19 12:06 Her CBC and CMP look good. Her HCG is negative. Her UA shows no UTI. Her US shows cholelithiasis with additional sonographic signs which could be due to acute cholecystitis. I called Dr Bauman and he will come see the patient and take her to the OR to remove her gallbladder. I have ordered a dose of rocephin 2 grams IV. Departure - Departure Time of Disposition: 12:10 Disposition: DC/Tfer to [facility] Condition: Fair Clinical Impression: Biliary colic Cholelithiasis Qualifiers: Cholelithiasis location: gallbladder Cholecystitis presence: with cholecystitis Cholecystitis acuity: acute Biliary obstruction: without biliary obstruction Qualified Code(s): K80.00 - Calculus of gallbladder with acute cholecystitis without obstruction - Discharge Information Referrals: PCP,None [Primary Care Provider] - Forms: ED Department Discharge Sepsis Event Note - Evaluation Sepsis Screening Result: No Definite Risk - Focused Exam Vital Signs: Vital Signs Temp Pulse Resp BP Pulse Ox 10/21/19 09:20 97.8 F 90 18 133/93 H 99 Date Exam was Performed: 10/21/19 Time Exam was Performed: 12:06 - My Orders Last 24 Hours: My Active Orders 10/21/19 09:37 Peripheral IV Care [RC] . DIRECTED Abdomen Ltd [US] Stat Sodium Chloride 0.9% [Saline Flush] 10 ml FLUSH ASDIRECTED PRN ED Antiemetic Medication Reflex [OM.PC] Stat Peripheral IV Insertion Adult [OM.PC] Stat 10/21/19 12:01 cefTRIAXone [Rocephin] 2 gm Sodium Chloride 0.9% [Normal Saline] 100 ml IV ONETIME - Assessment/Plan Last 24 Hours: My Active Orders 10/21/19 09:37 Peripheral IV Care [RC] . DIRECTED Abdomen Ltd [US] Stat Sodium Chloride 0.9% [Saline Flush] 10 ml FLUSH ASDIRECTED PRN ED Antiemetic Medication Reflex [OM.PC] Stat Peripheral IV Insertion Adult [OM.PC] Stat 10/21/19 12:01 cefTRIAXone [Rocephin] 2 gm Sodium Chloride 0.9% [Normal Saline] 100 ml IV ONETIME
[2019-10-21] MEDS ORDERED: cefTRIAXone 2 GM in Sodium Chloride 0.9% 100 ML IV ONE (12:01)
--- NOTE | 2019-10-21 12:34 | PCM.HP.2 ---
H&P History of Present Illness - General Date of Service: 10/21/19 Admit Problem/Dx: Admission Diagnosis/Problem Admission Diagnosis/Problem Cholecystitis Source of Information: Patient History Limitations: Reports: No Limitations - History of Present Illness Duration of Symptoms: Reports: Hour(s): Other HPI/Comments: Mrs. Bazan is a 39 yo woman presenting with right upper quadrant pain that began last night after eating a chili cheese dog. The pain is better now after receiving pain medication in the ER, but she is still operator brandy on exam. Lab work is normal but ultrasound shows gallstones with findings of cholecystitis including wall thickening and pericholecystic fluid. Right Abdomen Pain Score (Numeric/FACES): 8 - Related Data Allergies/Adverse Reactions: Allergies Allergy/AdvReac Type Severity Reaction Status Date / Time erythromycin base AdvReac Intermediate Change Verified 10/21/19 09:25 Mental Status Home Medications: Home Meds No122/Iron/Folic Acid [ Multi Tablet] 1 each PO DAILY 07/01/19 [History] Acetaminophen [Tylenol] 650 mg PO Q6H PRN tablet 07/02/19 [Rx] Benzocaine/Menthol [Dermoplast Pain Relief [place]] 1 spray TOP ASDIRECTED PRN canister 07/02/19 [Rx] Docusate Sodium [Colace] 100 mg PO BID PRN cap 07/02/19 [Rx] Ibuprofen [Motrin] 600 mg PO Q6H PRN tablet 07/02/19 [Rx] witch Elias [Tucks] 1 pad TOP ASDIRECTED PRN pad 07/02/19 [Rx] Past Medical History HEENT History: Reports: Other (See Below) 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 History: 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: , 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 (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) 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: hemorrhage with vaginal delivery of 2nd , preeclampsia with 2nd Musculoskeletal History: Reports: Other (See Below) Other Musculoskeletal History: right hip arthroplasty after last delivery for labrum tear - Past Surgical History HEENT Surgical History: Reports: Tonsillectomy, Other (See Below) GI Surgical History: Reports: Appendectomy Musculoskeletal Surgical History: Reports: Arthroscopic Knee, Other (See Below) Social & Family History - Family History Family Medical History: Noncontributory HEENT: Reports: Macular Degeneration Cardiac: Reports: Hypertension Endocrine/Metabolic: Reports: Diabetes, type II - Tobacco Use Smoking Status *Q: Never Smoker Second Hand Smoke Exposure: No - Caffeine Use Caffeine Use: Reports: None - Recreational Drug Use Recreational Drug Use: No - Living Situation & Occupation Living situation: Reports: , with Significant Other, with Family H&P Review of Systems - Review of Systems: Review Of Systems: See Below General: Reports: Malaise HEENT: Reports: No Symptoms Pulmonary: Reports: No Symptoms Cardiovascular: Reports: No Symptoms Gastrointestinal: Reports: Abdominal Pain Genitourinary: Reports: No Symptoms Musculoskeletal: Reports: No Symptoms Skin: Reports: No Symptoms Psychiatric: Reports: No Symptoms Neurological: Reports: No Symptoms Hematologic/Lymphatic: Reports: No Symptoms Immunologic: Reports: No Symptoms Exam - Exam Exam: See Below - Vital Signs Vital Signs: Last Vital Signs Temp 36.6 C 10/21/19 09:20 Pulse 90 10/21/19 09:20 Resp 18 10/21/19 09:20 BP 133/93 H 10/21/19 09:20 Pulse Ox 99 10/21/19 09:20 Weight: 77.111 kg - Exam General: Alert, Oriented, Cooperative HEENT: Conjunctiva Clear Neck: Supple Lungs: Clear to Auscultation Cardiovascular: Regular Rate GI/Abdominal Exam: Other ([place] sign positive, no palpable mass) Rectal (Female) Exam: Deferred Extremities: Normal Inspection Skin: Warm, Dry, Intact Neuro Extensive - Mental Status: Alert, Oriented x3, Normal Mood/Affect - Patient Data Lab Results Last 24 hrs: Laboratory Results - last 24 hr 10/21/19 10/21/19 10/21/19 Range/Units 09:40 09:40 09:40 WBC 8.65 (3.98-10.04) K/mm3 RBC 4.53 (3.98-5.22) M/mm3 Hgb 12.3 D (11.2-15.7) gm/dl Hct 37.7 (34.1-44.9) % MCV 83.2 D (79.4-94.8) fl MCH 27.2 (25.6-32.2) pg MCHC 32.6 (32.2-35.5) g/dl RDW Std Deviation 37.9 (36.4-46.3) fL Plt Count 251 D (182-369) K/mm3 MPV 9.6 (9.4-12.3) fl Neut % (Auto) 79.1 H (34.0-71.1) % Lymph % (Auto) 14.5 L (19.3-51.7) % [place] % (Auto) 5.7 (4.7-12.5) % Eos % (Auto) 0.3 L (0.7-5.8) Baso % (Auto) 0.2 (0.1-1.2) % Neut # (Auto) 6.84 H (1.56-6.13) K/mm3 Lymph # (Auto) 1.25 (1.18-3.74) K/mm3 [place] # (Auto) 0.49 H (0.24-0.36) K/mm3 Eos # (Auto) 0.03 L (0.04-0.36) K/mm3 Baso # (Auto) 0.02 (0.01-0.08) K/mm3 Sodium 140 (136-145) mEq/L Potassium 3.5 (3.5-5.1) mEq/L Chloride 105 (98-107) mEq/L Carbon Dioxide 24 (21-32) mEq/L Anion Gap 14.5 (5-15) BUN 9 (7-18) mg/dL Creatinine 0.6 (0.55-1.02) mg/dL Est Cr Clr Drug Dosing 134.78 mL/min Estimated GFR (MDRD) > 60 (>60) mL/min BUN/Creatinine Ratio 15.0 (14-18) Glucose 99 (74-106) mg/dL Calcium 8.8 (8.5-10.1) mg/dL Total Bilirubin 0.4 (0.2-1.0) mg/dL AST 15 (15-37) U/L ALT 21 (14-59) U/L Alkaline Phosphatase 84 (46-116) U/L Total Protein 6.9 (6.4-8.2) g/dl Albumin 3.9 (3.4-5.0) g/dl Globulin 3.0 gm/dL Albumin/Globulin Ratio 1.3 (1-2) Lipase 86 (73-393) U/L HCG, Qual Negative (NEGATIVE) Urine Color (Yellow) Urine Appearance (Clear) Urine pH (5.0-8.0) Ur Specific [place] (1.005-1.030) Urine Protein (Negative) Urine Glucose (UA) (Negative) Urine Ketones (Negative) Urine Occult Blood (Negative) Urine Nitrite (Negative) Urine Bilirubin (Negative) Urine Urobilinogen (0.2-1.0) Ur Leukocyte Esterase (Negative) Urine RBC (0-5) /hpf Urine WBC (0-5) /hpf Ur Epithelial Cells (0-5) /hpf Urine Bacteria (FEW) /hpf Urine Mucus (FEW) /hpf 10/21/19 Range/Units 10:00 WBC (3.98-10.04) K/mm3 RBC (3.98-5.22) M/mm3 Hgb (11.2-15.7) gm/dl Hct (34.1-44.9) % MCV (79.4-94.8) fl MCH (25.6-32.2) pg MCHC (32.2-35.5) g/dl RDW Std Deviation (36.4-46.3) fL Plt Count (182-369) K/mm3 MPV (9.4-12.3) fl Neut % (Auto) (34.0-71.1) % Lymph % (Auto) (19.3-51.7) % [place] % (Auto) (4.7-12.5) % Eos % (Auto) (0.7-5.8) Baso % (Auto) (0.1-1.2) % Neut # (Auto) (1.56-6.13) K/mm3 Lymph # (Auto) (1.18-3.74) K/mm3 [place] # (Auto) (0.24-0.36) K/mm3 Eos # (Auto) (0.04-0.36) K/mm3 Baso # (Auto) (0.01-0.08) K/mm3 Sodium (136-145) mEq/L Potassium (3.5-5.1) mEq/L Chloride (98-107) mEq/L Carbon Dioxide (21-32) mEq/L Anion Gap (5-15) BUN (7-18) mg/dL Creatinine (0.55-1.02) mg/dL Est Cr Clr Drug Dosing mL/min Estimated GFR (MDRD) (>60) mL/min BUN/Creatinine Ratio (14-18) Glucose (74-106) mg/dL Calcium (8.5-10.1) mg/dL Total Bilirubin (0.2-1.0) mg/dL AST (15-37) U/L ALT (14-59) U/L Alkaline Phosphatase (46-116) U/L Total Protein (6.4-8.2) g/dl Albumin (3.4-5.0) g/dl Globulin gm/dL Albumin/Globulin Ratio (1-2) Lipase (73-393) U/L HCG, Qual (NEGATIVE) Urine Color Yellow (Yellow) Urine Appearance Clear (Clear) Urine pH 8.5 H (5.0-8.0) Ur Specific [place] 1.020 (1.005-1.030) Urine Protein Negative (Negative) Urine Glucose (UA) Negative (Negative) Urine Ketones 2+ H (Negative) Urine Occult Blood Negative (Negative) Urine Nitrite Negative (Negative) Urine Bilirubin Negative (Negative) Urine Urobilinogen 0.2 (0.2-1.0) Ur Leukocyte Esterase Negative (Negative) Urine RBC 0-5 (0-5) /hpf Urine WBC 0-5 (0-5) /hpf Ur Epithelial Cells 5-10 H (0-5) /hpf Urine Bacteria Few (FEW) /hpf Urine Mucus Many H (FEW) /hpf Result Diagrams: 10/21/19 09:40 10/21/19 09:40 Sepsis Event Note - Evaluation Sepsis Screening Result: No Definite Risk - Focused Exam Vital Signs: Vital Signs Temp Pulse Resp BP Pulse Ox 10/21/19 09:20 36.6 C 90 18 133/93 H 99 Date Exam was Performed: 10/21/19 Time Exam was Performed: 12:30 *Q Meaningful Use (ADM) - VTE Risk Assess *Q Each Risk Factor Represents 1 Point: Minor Surgery Planned Total Score 1 Point Risk Factors: 1 Problem List Initiated/Reviewed/Updated: Yes Orders Last 24hrs: Active Orders 24 hr Category Date Time Status Admission Status [Patient Status] [ADT] Routine ADT 10/21/19 12:12 Active Peripheral IV Care [RC] . DIRECTED Care 10/21/19 09:37 Active Abdomen Ltd [US] Stat Exams 10/21/19 09:37 Taken Sodium Chloride 0.9% [Saline Flush] Med 10/21/19 09:37 Active 10 ml FLUSH ASDIRECTED PRN ED Antiemetic Medication Reflex [OM.PC] Stat Oth 10/21/19 09:37 Ordered Peripheral IV Insertion Adult [OM.PC] Stat Oth 10/21/19 09:37 Ordered Medication Orders Sodium Chloride (Saline Flush) 10 ml FLUSH ASDIRECTED PRN PRN Reason: Keep Vein Open Last Admin: 10/21/19 09:59 Dose: 10 ml Assessment/Plan Comment:: acute calculous cholecystitis, plan for laparoscopic cholecystectomy - Mortality Measure Prognosis:: Good
--- NOTE | 2019-10-21 12:34 | PCM.PREANE ---
Preanesthetic Assessment - Anesthesia/Transfusion/Family Hx Anesthesia History: Prior Anesthesia Without Reaction Family History of Anesthesia Reaction: No Transfusion History: Prior Transfusion Without Reaction Intubation History: Unknown - Review of Systems General: No Symptoms Pulmonary: No Symptoms Cardiovascular: No Symptoms Gastrointestinal: Abdominal Pain (rated: 1/10), Nausea, Vomiting Neurological: No Symptoms, Tingling (right leg since hip surgery) Other: Reports: None - Physical Assessment NPO Status Date: 10/20/19 NPO Status Time: 18:30 Vital Signs: Last Vital Signs Temp 36.6 C 10/21/19 09:20 Pulse 90 10/21/19 09:20 Resp 18 10/21/19 09:20 BP 133/93 H 10/21/19 09:20 Pulse Ox 99 10/21/19 09:20 Height: 1.78 m Weight: 77.111 kg ASA Class: 2E Mental Status: Alert & Oriented x3 Airway Class: Mallampati = 2 Dentition: Reports: Normal Dentition, Caries Thyro-Mental Finger Breadths: 3 Mouth Opening Finger Breadths: 3 ROM/Head Extension: Full Lungs: Clear to Auscultation, Normal Respiratory Effort Cardiovascular: Regular Rate, Regular Rhythm, No Murmurs - Lab Values: Laboratory Last Values WBC 8.65 K/mm3 (3.98-10.04) 10/21/19 09:40 RBC 4.53 M/mm3 (3.98-5.22) 10/21/19 09:40 Hgb 12.3 gm/dl (11.2-15.7) D 10/21/19 09:40 Hct 37.7 % (34.1-44.9) 10/21/19 09:40 MCV 83.2 fl (79.4-94.8) D 10/21/19 09:40 MCH 27.2 pg (25.6-32.2) 10/21/19 09:40 MCHC 32.6 g/dl (32.2-35.5) 10/21/19 09:40 RDW Std Deviation 37.9 fL (36.4-46.3) 10/21/19 09:40 Plt Count 251 K/mm3 (182-369) D 10/21/19 09:40 MPV 9.6 fl (9.4-12.3) 10/21/19 09:40 Neut % (Auto) 79.1 % (34.0-71.1) H 10/21/19 09:40 Lymph % (Auto) 14.5 % (19.3-51.7) L 10/21/19 09:40 [place] % (Auto) 5.7 % (4.7-12.5) 10/21/19 09:40 Eos % (Auto) 0.3 (0.7-5.8) L 10/21/19 09:40 Baso % (Auto) 0.2 % (0.1-1.2) 10/21/19 09:40 Neut # (Auto) 6.84 K/mm3 (1.56-6.13) H 10/21/19 09:40 Lymph # (Auto) 1.25 K/mm3 (1.18-3.74) 10/21/19 09:40 [place] # (Auto) 0.49 K/mm3 (0.24-0.36) H 10/21/19 09:40 Eos # (Auto) 0.03 K/mm3 (0.04-0.36) L 10/21/19 09:40 Baso # (Auto) 0.02 K/mm3 (0.01-0.08) 10/21/19 09:40 Sodium 140 mEq/L (136-145) 10/21/19 09:40 Potassium 3.5 mEq/L (3.5-5.1) 10/21/19 09:40 Chloride 105 mEq/L (98-107) 10/21/19 09:40 Carbon Dioxide 24 mEq/L (21-32) 10/21/19 09:40 Anion Gap 14.5 (5-15) 10/21/19 09:40 BUN 9 mg/dL (7-18) 10/21/19 09:40 Creatinine 0.6 mg/dL (0.55-1.02) 10/21/19 09:40 Est Cr Clr Drug Dosing 134.78 mL/min 10/21/19 09:40 Estimated GFR (MDRD) > 60 mL/min (>60) 10/21/19 09:40 BUN/Creatinine Ratio 15.0 (14-18) 10/21/19 09:40 Glucose 99 mg/dL (74-106) 10/21/19 09:40 Calcium 8.8 mg/dL (8.5-10.1) 10/21/19 09:40 Total Bilirubin 0.4 mg/dL (0.2-1.0) 10/21/19 09:40 AST 15 U/L (15-37) 10/21/19 09:40 ALT 21 U/L (14-59) 10/21/19 09:40 Alkaline Phosphatase 84 U/L (46-116) 10/21/19 09:40 Total Protein 6.9 g/dl (6.4-8.2) 10/21/19 09:40 Albumin 3.9 g/dl (3.4-5.0) 10/21/19 09:40 Globulin 3.0 gm/dL 10/21/19 09:40 Albumin/Globulin Ratio 1.3 (1-2) 10/21/19 09:40 Lipase 86 U/L (73-393) 10/21/19 09:40 HCG, Qual Negative (NEGATIVE) 10/21/19 09:40 Urine Color Yellow (Yellow) 10/21/19 10:00 Urine Appearance Clear (Clear) 10/21/19 10:00 Urine pH 8.5 (5.0-8.0) H 10/21/19 10:00 Ur Specific [place] 1.020 (1.005-1.030) 10/21/19 10:00 Urine Protein Negative (Negative) 10/21/19 10:00 Urine Glucose (UA) Negative (Negative) 10/21/19 10:00 Urine Ketones 2+ (Negative) H 10/21/19 10:00 Urine Occult Blood Negative (Negative) 10/21/19 10:00 Urine Nitrite Negative (Negative) 10/21/19 10:00 Urine Bilirubin Negative (Negative) 10/21/19 10:00 Urine Urobilinogen 0.2 (0.2-1.0) 10/21/19 10:00 Ur Leukocyte Esterase Negative (Negative) 10/21/19 10:00 Urine RBC 0-5 /hpf (0-5) 10/21/19 10:00 Urine WBC 0-5 /hpf (0-5) 10/21/19 10:00 Ur Epithelial Cells 5-10 /hpf (0-5) H 10/21/19 10:00 Urine Bacteria Few /hpf (FEW) 10/21/19 10:00 Urine Mucus Many /hpf (FEW) H 10/21/19 10:00 Above labs reviewed and noted and within acceptable ranges to proceed with procedure. 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: , 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 (See Below) 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: hemorrhage with vaginal delivery of 2nd , preeclampsia with 2nd Musculoskeletal History: Reports: Other (See Below) Other Musculoskeletal History: right hip arthroplasty after last delivery for labrum tear - Past Surgical History HEENT Surgical History: Reports: Tonsillectomy, Other (See Below) GI Surgical History: Reports: Appendectomy Musculoskeletal Surgical History: Reports: Arthroscopic Knee, Other (See Below) - SUBSTANCE USE Smoking Status *Q: Never Smoker Second Hand Smoke Exposure: No Recreational Drug Use History: No - HOME MEDS Home Medications: Home Meds No122/Iron/Folic Acid [ Multi Tablet] 1 each PO DAILY 07/01/19 [History] Acetaminophen [Tylenol] 650 mg PO Q6H PRN tablet 07/02/19 [Rx] Benzocaine/Menthol [Dermoplast Pain Relief [place]] 1 spray TOP ASDIRECTED PRN canister 07/02/19 [Rx] Docusate Sodium [Colace] 100 mg PO BID PRN cap 07/02/19 [Rx] Ibuprofen [Motrin] 600 mg PO Q6H PRN tablet 07/02/19 [Rx] witch Elias [Tucks] 1 pad TOP ASDIRECTED PRN pad 07/02/19 [Rx] - CURRENT (IN HOUSE) MEDS Current Meds: Current Medications Sodium Chloride (Saline Flush) 10 ml FLUSH ASDIRECTED PRN PRN Reason: Keep Vein Open Last Admin: 10/21/19 09:59 Dose: 10 ml Discontinued Medications Hydromorphone HCl (Dilaudid) 1 mg IVPUSH ONETIME ONE Stop: 10/21/19 09:39 Last Admin: 10/21/19 10:00 Dose: 1 mg Sodium Chloride (Normal Saline) 1,000 mls @ 1,000 mls/hr IV .BOLUS STA Stop: 10/21/19 10:36 Last Admin: 10/21/19 09:58 Dose: 1,000 mls/hr Ceftriaxone Sodium 2 gm/ (Sodium Chloride) 100 mls @ 200 mls/hr IV ONETIME ONE Stop: 10/21/19 12:30 Last Admin: 10/21/19 12:19 Dose: 200 mls/hr Ondansetron HCl (Zofran) 4 mg IVPUSH ONETIME ONE Stop: 10/21/19 09:38 Last Admin: 10/21/19 09:59 Dose: 4 mg
[2019-10-21] MEDS ORDERED: Bupivacaine 0.5%/EPINEPHrine 1:200,000 50 ML MDV ONE (12:44)
[2019-10-21] MEDS ORDERED: Propofol 200 MG/20 ML SDV ONE (12:54)
[2019-10-21] MEDS ORDERED: Lidocaine 1% 6 ML ONE (12:54)
[2019-10-21] MEDS ORDERED: Ketorolac 30 MG/ML SDV ONE (12:54)
[2019-10-21] MEDS ORDERED: Dexamethasone 4 MG/ML 5 ML MDV ONE (12:54)
[2019-10-21] MEDS ORDERED: Rocuronium 50 MG/5 ML Vial ONE (12:54)
[2019-10-21] MEDS ORDERED: Ondansetron 4 MG/2 ML SDV ONE (12:54)
[2019-10-21] MEDS ORDERED: HYDROmorphone 0.5 MG/0.5 ML Syringe ONE ×2 (12:54→13:52)
[2019-10-21] MEDS ORDERED: Lactated Ringers 2,000 ML ONE (12:54)
[2019-10-21] MEDS ORDERED: Midazolam 1 MG/ML 2 ML SDV ONE (12:55)
[2019-10-21] MEDS ORDERED: fentaNYL 250 MCG/5 ML SDV ONE (12:55)
[2019-10-21] MEDS ORDERED: fentaNYL 100 MCG/2 ML SDV IVPUSH PRN (13:33)
[2019-10-21] MEDS ORDERED: Ondansetron 4 MG/2 ML SDV IVPUSH PRN (13:33)
[2019-10-21] MEDS ORDERED: diphenhydrAMINE 50 MG/ML SDV IVPUSH PRN (13:33)
[2019-10-21] MEDS ORDERED: ePHEDrine 50 MG/ML SDV IVPUSH PRN (13:33)
[2019-10-21] MEDS ORDERED: HYDROmorphone 0.5 MG/0.5 ML Syringe IVPUSH PRN (13:36)
[2019-10-21] MEDS ORDERED: Phenylephrine 1 MG in Sodium Chloride 0.9% 10 ML IV SCH (13:45)
--- NOTE | 2019-10-21 14:37 | PCM.PRNOTE ---
- Free Text/Narrative Note: Operative Report Operation: laparoscopic cholecystectomy Date: 10/21/2019 Attending Surgeon: Ori Bauman MD Indication for Surgery:acute cholecystitis Preoperative antibiotics: ceftriaxone VTE prophylaxis: SCDs Estimated Blood Loss: 5 cc Findings: inflamed and edematous gallbladder. Critical view of safety obtained. Detailed Report: The patient underwent general endotracheal anesthesia after being placed supine on the operating table and initial timeout. The abdomen was prepped and draped in sterile fashion. A pre-incision timeout was performed confirming the patient s identity and the operation to be performed. A Veress needle was inserted into the abdominal cavity below the left costal margin along the mid-clavicular line. The abdomen was insufflated with CO2 to 15 mm Hg. Gas was aspirated below the umbilicus with a syringe in order to ensure safe placement of a 5 mm bladed laparoscopic port. The 5mm 30 degree laparoscope was then inserted and viscera inspected. The gallbladder appeared large and inflamed. Two additional 5 mm ports were placed along the right subcostal region under direct vision with the laparoscope, and a 12 mm port was placed at the subxiphoid region. The gallbladder was grasped at the fundus with a locking grasper and retracted anteriorly and superiorly, exposing the infundibulum. This was grasped with the surgeons left hand grasper and retracted laterally. The hook electrode was used to open the overlying peritoneum, and this plane of dissection was developed along the edges of the gallbladder at its interface with the liver bed. A combination of hook electrode, blunt dissection with the suction petroleum refining equipment operator and the [place] grasper were used to carefully expose and skeletonize the cystic duct and artery. A critical view of safety was obtained. Hemolock clips were then placed on both structures. The duct and artery were transected with laparoscopic scissors between the hemolock clips. The hook was then used to dissect the gallbladder free from its attachment to the liver. The specimen was then placed in an Endocatch bag and removed through the subxiphoid port. The liver bed was inspected and appeared hemostatic. The larger subxiphoid port was closed at the level of the fascia with vicryl suture using the PMI laparoscopic suture passer. Pneumoperitoneum was then released. All skin incisions were then closed with placement of subcuticular vicryl suture and dressed with dermabond. A total of 25 cc 0.5% marcaine with epinephrine was used for local anesthesia at the incision sites. The specimen was noted to contain whitish clear mucus without bilious appearance. The patient tolerated the operation well, was extubated in the operating room and transferred to the PACU for routine post-anesthesia care. Ori Bauman MD General Surgery
--- NOTE | 2019-10-21 15:07 | PCM.POSTAN ---
POST ANESTHESIA ASSESSMENT - MENTAL STATUS Mental Status: Alert - VITAL SIGNS Vital Signs: Last Vital Signs Temp 97.2 10/21/19 1441 Pulse 63 10/21/19 1441 Resp 6 10/21/19 1441 BP 97/78 10/21/19 1441 Pulse Ox 99 10/21/19 1441 - RESPIRATORY Respiratory Status: Respiratory Rate WNL, Airway Patent, O2 Saturation Stable, Supplemental Oxygen - CARDIOVASCULAR CV Status: Pulse Rate WNL, Blood Pressure Stable - GASTROINTESTINAL GI Status: No Symptoms - POST OP HYDRATION Hydration Status: Adequate & Stable
--- NOTE | 2019-10-21 15:07 | PCM48HPAN ---
Post Anesthesia Note - EVALUATION WITHIN 48HRS OF ANESTHETIC Vital Signs in Normal Range: Yes Patient Participated in Evaluation: Yes Respiratory Function Stable: Yes Airway Patent: Yes Cardiovascular Function Stable: Yes Hydration Status Stable: Yes Pain Control Satisfactory: Yes Nausea and Vomiting Control Satisfactory: Yes Mental Status Recovered: Yes Vital Signs: Last Vital Signs Temp 36.2 C 10/21/19 14:41 Pulse 63 10/21/19 14:41 Resp 6 L 10/21/19 14:41 BP 97/78 10/21/19 14:41 Pulse Ox 99 10/21/19 14:41
[2019-10-21] MEDS ORDERED: oxyCODONE 5 MG Tab PO ONE (15:31)
[2019-10-21] MEDS ORDERED: Lactated Ringers 1,000 ML IV SCH (16:30)
[2019-10-21 17:54] VITALS: BP 110/72; PULSE 74
--- NOTE | 2019-10-22 10:49 | US ---
Limited abdominal ultrasound: Multiple real-time images were obtained of the upper right abdomen. Multiple small gallstones are seen. Gallbladder wall is mildly thickened. Common hepatic duct is slightly prominent at 8 mm. Common bile duct measures within normal limits. Liver shows no focal abnormality. Right kidney shows a superior cyst measuring 8 mm. Right kidney has a length of 11.2 cm. Pancreas appears within normal limits. Inferior vena cava is patent. Portal vein shows normal hepatopedal flow. Impression: 1. Gallstones with gallbladder wall thickening, please correlate if patient has any symptoms of acute cholecystitis. Diagnostic code #3 Agree with preliminary report issued by [facility] ([facility] preliminary report dictated on 10/21/19, 12:43 PM Central Daylight Time) Study was dictated in MDT
== END 2019-10-21 17:44 | disposition home or self-care (01) ==
LOC: JD.ED 09:08 → JD.SDS 12:18
PROVIDERS: ATTEND Surgery
DX: K80.10 Calculus of gallbladder with chronic cholecystitis without obstruction (principal); Z88.1 Allergy status to other antibiotic agents; Z79.899 Other long term (current) drug therapy; Z90.49 Acquired absence of other specified parts of digestive tract
CPT/HCPCS: 36415; 47562; 76705; 80053; 81001; 83690; 84703; 85025; 96361; 96374; 96375; 99285; A9270; J0696; J1100; J1170; J1885; J2001; J2250; J2405; J2704; J2710; J3010; J3490; J7030; J7050; J7120; 00790

== ENCOUNTER 2020-01-08 18:34 | Emergency (ER) | payer OTHER ==
[2020-01-08 18:53] VITALS: BP 144/107; PULSE 80
--- NOTE | 2020-01-08 19:02 | EDM.PDOC ---
ED HPI GENERAL MEDICAL PROBLEM - General Chief Complaint: Abdominal Pain Stated Complaint: ABDOMINAL PAIN Time Seen by Provider: 01/08/20 18:59 - History of Present Illness INITIAL COMMENTS - FREE TEXT/NARRATIVE: 39-year-old female presents the emergency room with abdominal pain. This started immediately after eating supper this evening. It is a sharp burning pain in the mid epigastric area. She has had some nausea no vomiting no diarrhea no constipation. Prior to this the patient thought she was doing okay she had some mild discomfort in this area. She is not not aware of any fevers or chills. Patient had a laparoscopic cholecystectomy little over 2 months ago and has done well with this. This pain seems to be much worse. Patient does not believe she is she recently had a delivery this last spring. P atient states the pain she is having with this bout of abdominal pain is just as bad is anything she has ever gone through. Patient describes the pain is radiating into her shoulder blades and down to her hips. Upper Abdomen Pain Score (Numeric/FACES): 10 - Related Data Allergies Allergy/AdvReac Type Severity Reaction Status Date / Time erythromycin base AdvReac Intermediate Change Verified 10/21/19 09:25 Mental Status Home Meds: Home Meds No122/Iron/Folic Acid [ Multi Tablet] 1 each PO DAILY 07/01/19 [History] Acetaminophen [Tylenol] 650 mg PO Q6H PRN tablet 07/02/19 [Rx] Benzocaine/Menthol [Dermoplast Pain Relief [place]] 1 spray TOP ASDIRECTED PRN canister 07/02/19 [Rx] Docusate Sodium [Colace] 100 mg PO BID PRN cap 07/02/19 [Rx] Ibuprofen [Motrin] 600 mg PO Q6H PRN tablet 07/02/19 [Rx] witch Elias [Tucks] 1 pad TOP ASDIRECTED PRN pad 07/02/19 [Rx] oxyCODONE 5 mg PO Q4H #15 tab 10/21/19 [Rx] Hydrocodone/Acetaminophen [Hydrocodon-Acetaminoph 7.5-325] 1 each PO Q4H PRN #10 tablet 01/08/20 [Rx] Pantoprazole Sodium [Protonix] 40 mg PO Q24H #30 tablet. 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: hemorrhage with vaginal delivery of 2nd , preeclampsia with 2nd Musculoskeletal History: Reports: Other (See Below) Other Musculoskeletal History: right hip arthroplasty after last delivery for labrum tear - Past Surgical History HEENT Surgical History: Reports: Adenoidectomy, Tonsillectomy GI Surgical History: Reports: Appendectomy Musculoskeletal Surgical History: Reports: Arthroscopic Knee Social & Family History - Family History Family Medical History: Noncontributory HEENT: Reports: Macular Degeneration Cardiac: Reports: Hypertension Endocrine/Metabolic: Reports: Diabetes, type II - Tobacco Use Smoking Status *Q: Never Smoker - Caffeine Use Caffeine Use: Reports: Coffee, Soda - Recreational Drug Use Recreational Drug Use: No - Living Situation & Occupation Living situation: Reports: , with Significant Other, with Family ED ROS GENERAL - Review of Systems Review Of Systems: See Below Constitutional: Reports: No Symptoms HEENT: Reports: No Symptoms Respiratory: Reports: No Symptoms Cardiovascular: Reports: No Symptoms GI/Abdominal: Reports: Abdominal Pain, Nausea, Other (.). Denies: Black Stool, Bloody Stool, Constipation, Diarrhea, Vomiting ED EXAM, GI/ABD - Physical Exam Exam: See Below Exam Limited By: No Limitations General Appearance: Alert, Moderate Distress (She is in pain) Head: Atraumatic, Normocephalic Neck: Normal Inspection, Supple, Non-Tender, Full Range of Motion Respiratory/Chest: No Respiratory Distress, Lungs Clear, Normal Breath Sounds Cardiovascular: Regular Rate, Rhythm, No Edema, No Murmur GI/Abdominal Exam: Tender (Nephric and tenderness in the midepigastric area and to a lesser degree left upper quadrant right upper quadrant is not too bad lower abdomen is unremarkable), Other (He has hypoactive bowel sounds but they are indeed present). No: Guarding, Rigid, Rebound Back Exam: Normal Inspection, CVA Tenderness (L), CVA Tenderness (R) Course - Vital Signs Last Recorded V/S: Last Vital Signs Temp 35.8 C L 01/08/20 18:50 Pulse 80 01/08/20 18:50 Resp 20 01/08/20 18:50 BP 144/107 H 01/08/20 18:50 Pulse Ox 100 01/08/20 18:50 - Orders/Labs/Meds Orders: Active Orders 24 hr Category Date Time Status Abdomen 2V AP Flat Upright [CR] Stat Exams 01/08/20 20:01 Taken Lactated Ringers [Ringers, Lactated] 1,000 ml Med 01/08/20 19:15 Active IV ASDIRECTED Medication Orders Lactated Ringer's (Ringers, Lactated) 1,000 mls @ 125 mls/hr IV ASDIRECTED MARSHAL Last Admin: 01/08/20 19:16 Dose: 125 mls/hr Documented by: BECKY Labs: Laboratory Tests 01/08/20 01/08/20 01/08/20 Range/Units 18:45 18:45 18:45 WBC 7.81 (3.98-10.04) K/mm3 RBC 4.60 (3.98-5.22) M/mm3 Hgb 12.9 (11.2-15.7) gm/dl Hct 40.1 (34.1-44.9) % MCV 87.2 D (79.4-94.8) fl MCH 28.0 (25.6-32.2) pg MCHC 32.2 (32.2-35.5) g/dl RDW Std Deviation 41.6 (36.4-46.3) fL Plt Count 269 (182-369) K/mm3 MPV 9.7 (9.4-12.3) fl Neut % (Auto) 60.8 (34.0-71.1) % Lymph % (Auto) 32.0 (19.3-51.7) % [place] % (Auto) 5.8 (4.7-12.5) % Eos % (Auto) 1.0 (0.7-5.8) Baso % (Auto) 0.3 (0.1-1.2) % Neut # (Auto) 4.75 (1.56-6.13) K/mm3 Lymph # (Auto) 2.50 (1.18-3.74) K/mm3 [place] # (Auto) 0.45 H (0.24-0.36) K/mm3 Eos # (Auto) 0.08 (0.04-0.36) K/mm3 Baso # (Auto) 0.02 (0.01-0.08) K/mm3 Sodium 140 (136-145) mEq/L Potassium 3.3 L (3.5-5.1) mEq/L Chloride 102 (98-107) mEq/L Carbon Dioxide 27 (21-32) mEq/L Anion Gap 14.3 (5-15) BUN 14 (7-18) mg/dL Creatinine 0.9 (0.55-1.02) mg/dL Est Cr Clr Drug Dosing 92.87 mL/min Estimated GFR (MDRD) > 60 (>60) mL/min BUN/Creatinine Ratio 15.6 (14-18) Glucose 120 H (74-106) mg/dL Calcium 9.3 (8.5-10.1) mg/dL Total Bilirubin 0.3 (0.2-1.0) mg/dL AST 193 H (15-37) U/L ALT 63 H (14-59) U/L Alkaline Phosphatase 112 (46-116) U/L Total Protein 7.7 (6.4-8.2) g/dl Albumin 4.0 (3.4-5.0) g/dl Globulin 3.7 gm/dL Albumin/Globulin Ratio 1.1 (1-2) Lipase 107 (73-393) U/L HCG, Qual Negative (NEGATIVE) Urine Color (Yellow) Urine Appearance (Clear) Urine pH (5.0-8.0) Ur Specific [place] (1.005-1.030) Urine Protein (Negative) Urine Glucose (UA) (Negative) Urine Ketones (Negative) Urine Occult Blood (Negative) Urine Nitrite (Negative) Urine Bilirubin (Negative) Urine Urobilinogen (0.2-1.0) Ur Leukocyte Esterase (Negative) 01/08/20 Range/Units 19:10 WBC (3.98-10.04) K/mm3 RBC (3.98-5.22) M/mm3 Hgb (11.2-15.7) gm/dl Hct (34.1-44.9) % MCV (79.4-94.8) fl MCH (25.6-32.2) pg MCHC (32.2-35.5) g/dl RDW Std Deviation (36.4-46.3) fL Plt Count (182-369) K/mm3 MPV (9.4-12.3) fl Neut % (Auto) (34.0-71.1) % Lymph % (Auto) (19.3-51.7) % [place] % (Auto) (4.7-12.5) % Eos % (Auto) (0.7-5.8) Baso % (Auto) (0.1-1.2) % Neut # (Auto) (1.56-6.13) K/mm3 Lymph # (Auto) (1.18-3.74) K/mm3 [place] # (Auto) (0.24-0.36) K/mm3 Eos # (Auto) (0.04-0.36) K/mm3 Baso # (Auto) (0.01-0.08) K/mm3 Sodium (136-145) mEq/L Potassium (3.5-5.1) mEq/L Chloride (98-107) mEq/L Carbon Dioxide (21-32) mEq/L Anion Gap (5-15) BUN (7-18) mg/dL Creatinine (0.55-1.02) mg/dL Est Cr Clr Drug Dosing mL/min Estimated GFR (MDRD) (>60) mL/min BUN/Creatinine Ratio (14-18) Glucose (74-106) mg/dL Calcium (8.5-10.1) mg/dL Total Bilirubin (0.2-1.0) mg/dL AST (15-37) U/L ALT (14-59) U/L Alkaline Phosphatase (46-116) U/L Total Protein (6.4-8.2) g/dl Albumin (3.4-5.0) g/dl Globulin gm/dL Albumin/Globulin Ratio (1-2) Lipase (73-393) U/L HCG, Qual (NEGATIVE) Urine Color Light yellow (Yellow) Urine Appearance Clear (Clear) Urine pH 6.5 (5.0-8.0) Ur Specific [place] > or = 1.030 (1.005-1.030) Urine Protein Negative (Negative) Urine Glucose (UA) Negative (Negative) Urine Ketones Negative (Negative) Urine Occult Blood Negative (Negative) Urine Nitrite Negative (Negative) Urine Bilirubin Negative (Negative) Urine Urobilinogen 0.2 (0.2-1.0) Ur Leukocyte Esterase Negative (Negative) Meds: Medications Generic Name Dose Route Start Last Admin Trade Name Vaishali PRN Reason Stop Dose Admin Lactated Ringer's 1,000 mls @ 125 mls/hr 01/08/20 19:15 01/08/20 19:16 Ringers, Lactated IV 125 mls/hr ASDIRECTED MARSHAL Administration Discontinued Medications Generic Name Dose Route Start Last Admin Trade Name Vaishali PRN Reason Stop Dose Admin Al Hydroxide/Mg Hydroxide 30 0 ml 01/08/20 20:01 01/08/20 20:10 ml/ Lidocaine HCl 15 ml PO 01/08/20 20:02 45 ml ONETIME ONE Administration Fentanyl 100 mcg 01/08/20 19:09 01/08/20 19:16 Sublimaze IVPUSH 01/08/20 19:10 100 mcg ONETIME ONE Administration Fentanyl Confirm 01/08/20 19:42 01/08/20 19:51 Sublimaze Administered 01/08/20 19:43 Not Given Dose 100 mcg .ROUTE .STK-MED ONE Fentanyl 50 mcg 01/08/20 19:51 01/08/20 19:40 Sublimaze IVPUSH 01/08/20 19:52 50 mcg ONETIME STA Administration Ondansetron HCl 4 mg 01/08/20 19:09 01/08/20 19:16 Zofran IVPUSH 01/08/20 19:10 4 mg ONETIME ONE Administration Sucralfate 1 gm 01/08/20 20:49 01/08/20 21:10 Carafate PO 01/08/20 20:50 1 gm ONETIME ONE Administration - Re-Assessments/Exams Free Text/Narrative Re-Assessment/Exam: 01/08/20 20:50 She had really good relief after GI cocktail the pain has not returned. Laboratory evaluation is unrevealing. At this point will discharge on Protonix Carafate and give her a few hydrocodone in case this pain returns. 01/08/20 21:49 The patient is concerned about using the Protonix with nursing. All the PPIs have this precaution. I have advised her to try famotidine 20 mg twice daily however have informed her is not nearly as strong as the Protonix or any of the PPIs. She will start famotidine tonight and hold off on the Protonix unless her symptoms return. The dose of this was written on her discharge instructions by nursing. Departure - Departure Time of Disposition: 20:51 Disposition: Home, Self-Care 01 Clinical Impression: Dyspepsia, Gastritis - Discharge Information Prescriptions: Sucralfate [Carafate] 1 gm PO QIDACANDBED #24 cup Hydrocodone/Acetaminophen [Hydrocodon-Acetaminoph 7.5-325] 1 each PO Q4H PRN #10 tablet PRN Reason: Pain Pantoprazole Sodium [Protonix] 40 mg PO Q24H #30 tablet. Instructions: Gastritis, Adult, [id number] Referrals: PCP,None [Primary Care Provider] - Forms: ED Department Discharge Additional Instructions: Return to the emergency room with any questions problems or worsening symptoms. Follow-up with your regular healthcare provider or establish with 1 and be seen in 1 to 2 weeks for recheck. Take the medications as we discussed first you will take the Protonix this is taken 1 hour before breakfast daily except tonight take 1 around 10:00. Take the Carafate your insurance company prefers the liquid form and that is fine 1 dose just before breakfast lunch and supper and again at bedtime he will take this for 6 days. I gave you a prescription for hydrocodone 7.5/325 take 1 every 4 hours only if needed for pain allow 12 hours after using this medication before driving or returning to work Sepsis Event Note (ED) - Evaluation Sepsis Screening Result: No Definite Risk - Focused Exam Vital Signs: Vital Signs Temp Pulse Resp BP Pulse Ox 01/08/20 18:50 35.8 C L 80 20 144/107 H 100 - My Orders Last 24 Hours: My Active Orders 01/08/20 19:15 Lactated Ringers [Ringers, Lactated] 1,000 ml IV ASDIRECTED 01/08/20 20:01 Abdomen 2V AP Flat Upright [CR] Stat - Assessment/Plan Last 24 Hours: My Active Orders 01/08/20 19:15 Lactated Ringers [Ringers, Lactated] 1,000 ml IV ASDIRECTED 01/08/20 20:01 Abdomen 2V AP Flat Upright [CR] Stat
[2020-01-08] MEDS ORDERED: Ondansetron 4 MG/2 ML SDV IVPUSH ONE (19:09)
[2020-01-08] MEDS ORDERED: fentaNYL 100 MCG/2 ML SDV IVPUSH ONE (19:09)
[2020-01-08] MEDS ORDERED: Lactated Ringers 1,000 ML IV SCH (19:15)
[2020-01-08] MEDS ORDERED: fentaNYL 100 MCG/2 ML SDV ONE (19:42)
[2020-01-08] MEDS ORDERED: fentaNYL 100 MCG/2 ML SDV IVPUSH STA (19:51)
[2020-01-08] MEDS ORDERED: Alum Hydrox/Mag Hydrox/Simeth 30 ML, Lidocaine 2% 15 ML PO ONE ×2 (20:01)
[2020-01-08] MEDS ORDERED: Sucralfate 1 GM Tab PO ONE (20:49)
--- NOTE | 2020-01-08 21:54 | CR ---
Abdomen: Supine and upright views the abdomen were obtained. Comparison: Previous abdominal ultrasound of 10/21/19, no prior abdominal x-ray. Bowel gas pattern appears normal. No abnormal calcifications or soft tissue abnormality is seen. No free air is seen. Minimal scoliosis is noted within the spine. Visualized lung bases are clear. Impression: 1. Findings as noted above. 2. Nothing acute is seen on 2 view abdominal x-ray. Diagnostic code #1 This report was dictated in MDT
== END 2020-01-08 21:40 | disposition home or self-care (01) ==
LOC: JD.ED 18:34
DX: K29.70 Gastritis, unspecified, without bleeding (principal); Z90.49 Acquired absence of other specified parts of digestive tract; Z88.1 Allergy status to other antibiotic agents
CPT/HCPCS: 36415; 74019; 80053; 81003; 83690; 84703; 85025; 96374; 96375; 99284; A9270; J2405; J3010; J7120

== ENCOUNTER 2022-10-25 01:09 | Emergency (ER) | payer OTHER ==
[2022-10-25 01:34] VITALS: BP 182/100; PULSE 70
== END 2022-10-25 02:15 | disposition home or self-care (01) ==
LOC: JD.ED 01:09
DX: R03.0 Elevated blood-pressure reading, without diagnosis of hypertension (principal); Z87.891 Personal history of nicotine dependence; Z86.16 Personal history of COVID-19; Z88.1 Allergy status to other antibiotic agents; Z79.899 Other long term (current) drug therapy
CPT/HCPCS: 93005; 93010; 99283